=== PATIENT | female | born 1935 | race Caucasian/White ===

== ENCOUNTER 2017-08-16 11:01 | Inpatient (IN) | payer MEDICARE, OTHER ==
[2017-08-16] VITALS (11 sets, daily range): BP systolic 115–194; BP diastolic 60–109
[~2017-08-16] VITALS: Ht 170.2 cm; Wt 57.0 kg
--- NOTE | 2017-08-16 11:57 | ED Neurological Problem ---
General Chief Complaint: Dizziness/Syncope Stated Complaint: POSS STROKE Nursing Triage Note: AMB TO ED PER EMS WITH ONSET BEING DIZZY PATIENT REPORTS THAT SHE DID NOT FEEL WELL LAST NIGHT WHEN SHE WENT TO BED. AND WOKE UP AT 4A FEELING DIZZY. Nursing Sepsis Screen: No Definite Risk Source: patient, family Exam Limitations: no limitations History of Present Illness Time seen by provider: 11:28 Initial Comments Here with report of dizziness, weakness, lightheadedness and headache and neck pain. Onset yesterday and then apparently resolved enough that she was able to go to the bathroom to 0230 this morning on her own. At 0 830, she will And was unable to get out of bed due to significant dizziness and lightheadedness. Her was able to assist her to the bathroom with moderate assist. Patient had nausea and dry heaves. Complaining of headache and upper neck pain. Complaining of persistent lightheadedness currently. Does have history of any bleed with transfer to a year ago. This was apparently from [facility]. Patient reports taking meds as directed. Timing/Duration: 24 hours, increasing, waxing and waning Severity: moderate Associated Symptoms: No fever/chills, No muscle spasms, nausea/vomiting, No slurred speech, trouble walking, weakness Allergies and Home Medications Allergies Coded Allergies: No Known Drug Allergies (Unverified , 08/16/17) Home Medications Aspirin 81 Mg Tablet.dr, 81 MG PO DAILY, (Reported) Bifidobacterium Infantis 4 Mg Capsule, 4 MG PO DAILY, (Reported) Calcium Carbonate 500 Mg Tablet, 500-1,000 MG PO Q6H PRN for INDIGESTION, ( Reported) Cholecalciferol (Vitamin D3) 2,000 Unit Capsule, 2,000 UNIT PO BID, (Reported) Clopidogrel Bisulfate 75 Mg Tablet, 75 MG PO 1200, (Reported) Cyanocobalamin 1,000 Mcg/Ml Inj, 1,000 MCG INJ MONTHLY, (Reported) END OF EACH MONTH Escitalopram Oxalate 5 Mg Tablet, 5 MG PO HS, (Reported) Fluticasone Propionate 9.9 Ml [place].susp, 2 SPRAYS NS DAILY PRN for ALLERGIES, ( Reported) Levothyroxine Sodium 50 Mcg Tablet, 50 MCG PO DAILY, (Reported) Lisinopril 20 Mg Tablet, 20 MG PO BID, (Reported) Melatonin 1 Mg Tablet, 2 MG PO HS, (Reported) Metoprolol Tartrate 100 Mg Tablet, 100 MG PO BID, (Reported) Polyethylene Glycol 3350 17 Gm Powd.pack, 17 GM PO DAILY PRN for CONSTIPATION- 2ND LINE, (Reported) Sucralfate 1 Gm Tablet, 1 GM PO BID, (Reported) Constitutional: see HPI, No chills, dizziness, No fever, weakness Eyes: No Symptoms Reported Ears, Nose, Mouth, Throat: no symptoms reported Respiratory: No cough, No dyspnea on exertion, No short of breath Cardiovascular: No chest pain, No edema, No palpitations Gastrointestinal: abdominal pain (low abdominal and epigastric region), nausea , vomiting Genitourinary: no symptoms reported Musculoskeletal: no symptoms reported Skin: no symptoms reported Psychiatric/Neurological: See HPI, Headache, Weakness All Other Systems Reviewed Negative Unless Noted: Yes Past Vaaigyi-Raimju-Gcvllx Hx Patient Social History Alcohol Use: Denies Use Recreational Drug Use: No Smoking Status: Former Smoker Recent Foreign Travel: No Contact w/Someone Who Travel: No Recent Infectious Disease Expo: No Recent Hopitalizations: Yes Surgeries 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 ) Neurological Disorders: Stroke Endocrine History of Endocrine Disorders: Yes Endocrine Disorders: Hypothyroidsim Cancer History of Cancer: No Psychosocial History of Psychiatric Problem: Yes Behavioral Health Disorders: Depression Reviewed Nursing Assessment Reviewed/Agree w Nursing PMH: Yes Family Medical History Significant Family History: No Pertinent Family Hx Physical Exam Vital Signs Vital Sign - Last 12Hours 08/16/17 08/16/17 11:29 12:07 Temp 98.0 Pulse 75 Resp 18 B/P (MAP) 191/120 Pulse Ox 97 O2 Delivery Room Air Capillary Refill : Less Than 3 Seconds General Appearance: WD/WN, no apparent distress HEENT: PERRL/EOMI, pharynx normal Neck: full range of motion, supple Respiratory: lungs clear, normal breath sounds Cardiovascular: regular rate, rhythm, no murmur Peripheral Pulses: 2+ Dorsalis Pedis (R), 2+ Left Dors-Pedis (L), 2+ Radial Pulses (R), 2+ Radial Pulses (L) Gastrointestinal: non tender, soft Back: normal inspection, no CVA tenderness, no vertebral tenderness Extremities: non-tender, normal inspection, no pedal edema Neurologic/Psychiatric: alert, oriented x 3 Crainal Nerves: normal hearing, normal speech, PERRL Coordination/Gait: other (finger to nose slowed bilaterally) Motor/Sensory: no motor deficit, no sensory deficit, no pronator drift Skin: normal color, warm/dry Progress/Results/Core Measures Results/Orders Lab Results Laboratory Tests Test 08/16/17 12:13 08/16/17 12:40 08/16/17 13:01 Range/Units White Blood Count 7.4 4.3-11.0 10^3/uL Red Blood Count 3.86 L 4.35-5.85 10^6/uL Hemoglobin 12.6 11.5-16.0 G/DL Hematocrit 37 35-52 % Mean Corpuscular Volume 96 80-99 FL Mean Corpuscular Hemoglobin 33 25-34 PG Mean Corpuscular Hemoglobin Concent 34 32-36 G/DL Red Cell Distribution Width 11.7 10.0-14.5 % Platelet Count 214 130-400 10^3/uL Mean Platelet Volume 9.4 7.4-10.4 FL Neutrophils (%) (Auto) 73 42-75 % Lymphocytes (%) (Auto) 18 12-44 % Monocytes (%) (Auto) 7 0-12 % Eosinophils (%) (Auto) 1 0-10 % Basophils (%) (Auto) 0 0-10 % Neutrophils # (Auto) 5.4 1.8-7.8 X 10^3 Lymphocytes # (Auto) 1.4 1.0-4.0 X 10^3 Monocytes # (Auto) 0.5 0.0-1.0 X 10^3 Eosinophils # (Auto) 0.1 0.0-0.3 10^3/uL Basophils # (Auto) 0.0 0.0-0.1 10^3/uL Sodium Level 138 135-145 MMOL/L Potassium Level 4.0 3.6-5.0 MMOL/L Chloride Level 104 98-107 MMOL/L Carbon Dioxide Level 30 21-32 MMOL/L Anion Gap 4 L 5-14 MMOL/L Blood Urea Nitrogen 13 7-18 MG/DL Creatinine 0.77 0.60-1.30 MG/DL Estimat Glomerular Filtration Rate > 60 BUN/Creatinine Ratio 17 Glucose Level 105 70-105 MG/DL Calcium Level 9.0 8.5-10.1 MG/DL Magnesium Level 1.7 L 1.8-2.4 MG/DL Total Bilirubin 0.5 0.1-1.0 MG/DL Aspartate Amino Transf (AST/SGOT) 16 5-34 U/L Alanine Aminotransferase (ALT/SGPT) 8 0-55 U/L Alkaline Phosphatase 57 40-136 U/L Troponin I < 0.30 <0.30 NG/ML C-Reactive Protein High Sensitivity 0.08 0.00-0.50 MG/DL Total Protein 6.9 6.4-8.2 GM/DL Albumin 3.6 3.2-4.5 GM/DL Urine Color YELLOW Urine Clarity SLIGHTLY CLOUDY Urine pH 7 5-9 Urine Specific Triangle 1.010 L 1.016-1.022 Urine Protein NEGATIVE NEGATIVE Urine Glucose (UA) NEGATIVE NEGATIVE Urine Ketones NEGATIVE NEGATIVE Urine Nitrite POSITIVE H NEGATIVE Urine Bilirubin NEGATIVE NEGATIVE Urine Urobilinogen NORMAL NORMAL MG/DL Urine Leukocyte Esterase 2+ H NEGATIVE Urine RBC (Auto) 1+ H NEGATIVE Urine RBC RARE /HPF Urine WBC 10-25 H /HPF Urine Squamous Epithelial Cells 5-10 /HPF Urine Renal Epithelial Cells NONE /HPF Urine Crystals PRESENT H /LPF Urine Amorphous Sediment FEW KESHAWN URATES H /LPF Urine Bacteria LARGE H /HPF Urine Casts NONE /LPF Urine Mucus NEGATIVE /LPF Urine Culture Indicated YES Prothrombin Time 13.4 12.2-14.7 SEC INR Comment 1.0 0.8-1.4 Activated Partial Thromboplast Time 25 24-35 SEC D-Dimer 0.52 H 0.00-0.49 UG/ML My Orders Orders - BHAVANA KRAMER MD Ct Head/Cervical Spine Wo (08/16/17 11:37) Cbc With Automated Diff (08/16/17 11:37) Comprehensive Metabolic Panel (08/16/17 11:37) Hs C Reactive Protein (08/16/17 11:37) Fibrin Degradation Products (08/16/17 11:37) Magnesium (08/16/17 11:37) Protime With Inr (08/16/17 11:37) Partial Thromboplastin Time (08/16/17 11:37) Troponin I (08/16/17 11:37) Ua Culture If Indicated (08/16/17 11:37) Ekg Tracing (08/16/17 11:37) Monitor-Rhythm Ecg Trace Only (08/16/17 11:37) Dysphagia Screening Tool (08/16/17 11:37) Urine Culture (08/16/17 12:40) Ceftriaxone Injection (Rocephin Injectio (08/16/17 14:45) Medications Given in ED Current Medications Medications Dose Ordered Sig/Ziggy Route Start Time Stop Time Status Last Admin Dose Admin Ceftriaxone Sodium 1000 mg/ Sodium Chloride 50 ml @ 100 mls/hr ONCE ONCE IV 08/16/17 14:45 08/16/17 15:14 DC 08/16/17 14:55 100 MLS/HR Vital Signs/I&O Vital Sign - Last 12Hours 08/16/17 08/16/17 08/16/17 08/16/17 11:29 12:07 13:18 14:10 Temp 98.0 Pulse 75 57 60 65 Resp 18 18 18 18 B/P (MAP) 191/120 188/109 154/84 194/91 Pulse Ox 97 97 94 97 O2 Delivery Room Air Room Air 08/16/17 15:10 Pulse 62 Resp 18 Pulse Ox 95 O2 Delivery Room Air Blood Pressure Mean: 143 Progress Note : Progress Note Seen and evaluated. IV, labs, UA. CT head and neck ordered. EKG and chest x- ray ordered. Stroke scale 0 as performed by me. Dysphagia screen ordered. Monitor patient. Patient is not candidate for TPA due to onset time greater than 3 hours prior to arrival with last known well time 230 a.m. this morning. Patient is also on Plavix with history of hemorrhagic stroke a year ago. Monitor patient. 1240: Acute findings of CVA on CT in the left front region. Also sinus system concerns. All findings concerns were discussed with the patient and family. Patient needs MRI evaluation. Also has hypertension that we will just monitor at this point as her blood pressures have been less than 220 systolic but have been elevated in the 160s to 190s systolic range. This will need to be further evaluated after the acute phase. 1500: Over the last 2 hours I have spoken with Dr. Ford who is accepted patient for admission, inpatient status to the ICU. She has requested consult with Dr. Miller and with ENT. I spoke with Twyla Meyer APRN patrol conductor for ENT. I did discuss the maxillary sinus concerns. She recommends antibiotics to treat for sinusitis and they will follow her up in 2 weeks. She believes this is likely related to acute sinusitis symptoms. Patient and family admit that she has frequent sinus problems. There is no history of mass or other concerns within the sinus and she has been thoroughly examined in the last year related to brain bleed. I do believe this is related to sinusitis. I did speak with Dr. Miller and he had concerns related to anticoagulation. This prompted a call to the on-call stroke neurologist, Dr Sam Arvizu. He will view the films both from here and previous films at to determine if the risk of anticoagulation further exceeds the benefits. 1438: I discussed the case with on-call stroke neurologist again. He has reviewed the films there and has noted that the area of hypodensity is along the track of the previous drain related to the previous intracranial hemorrhage that was fairly significant. He does not believe that this is acute onset stroke given the area of concern. In discussion of anticoagulation, he is recommending watchman device through cardiology. This could be due to [facility] the patient needs to be clear to infections before consult placed. As far as anticoagulation, given that there is less likelihood of current stroke and more related to infection, continuation of Plavix and aspirin seems reasonable. All of this was discussed with the patient and family including risk of anticoagulation further versus continuing with current regimen which would include risk of embolic stroke versus risk of hemorrhagic stroke. Patient and family agree that current therapy is reasonable and will continue that but would like to pursue the watchman device as an option later. Patient will be admitted to the ICU due to labile blood pressure. Cardiology will follow with regard to that. 1500: I did update Dr. Ford on all current findings and concerns as well as the urinary tract infection. Rocephin 1 g IV has been ordered and given. Admit inpatient status. Patient shows no evidence of severe bacterial infection systemically currently. Blood cultures and lactic acid not drawn prior to Rocephin due to complicated issues related to evaluation of the stroke. CRP is negative and white count is normal. ECG Initial ECG Impression Date: Aug 16, 2017 Initial ECG Impression Time: 11:54 Initial ECG Rate: 69 Initial ECG Rhythm: A Fib/Flutter Initial ECG Impression: Atrial Fibrillation Comment Atrial fibrillation with normal rate. Normal axis. No evidence of ST elevation RI. No previous EKGs available for comparison area and interpreted by me. Diagnostic Imaging Diagonstic Imaging: CT Plain Films/CT/US/NM/MRI: head Comments VIA [facility]. [place], [place] NAME: JOSE ELY REC#: [id number] PT STATUS: REG ER : 1935 PHYSICIAN: BHAVANA KRAMER MD ADMIT DATE: 08/16/17/ER Draft Date of Exam:08/16/17 CT HEAD/CERVICAL SPINE WO PROCEDURE: CT head and CT cervical spine without contrast. TECHNIQUE: Multiple contiguous axial images were obtained through the brain and cervical spine without the use of intravenous contrast. Sagittal and coronal reformations through the cervical spine were then performed. INDICATION: Dizziness. Fall. No prior studies are available for comparison. Findings: CT head: There is extensive periventricular and deep white matter hypodensities compatible with chronic microvascular ischemic changes. There is a left frontal age indeterminate infarct also suggested. No intracranial hemorrhage. No extra-axial fluid collection. No hydrocephalus. The calvarium appears unremarkable. There is a complete obliteration of the left maxillary sinus partially visualized on this exam. This could relate to a polyp or a mass. ENT evaluation suggested. CT cervical spine: There is satisfactory alignment at the posterior spinal line. The vertebral body heights are preserved. There is a moderate disc height loss at C6/7 level. Mild posterior osteophytes at this level is seen. There is suggestion of early osseous bridging and fusion along the posterior margin of the vertebral bodies and the right uncovertebral joint at this level. No widening of the predental space. There is satisfactory alignment of the lateral masses of C1 and C2 and at the atlantooccipital joints. There is degenerative facet arthropathy seen in the mid cervical spine most prominent on the left side at C4/5 level. No fracture is seen. The lung apices demonstrate evidence of emphysema. IMPRESSION: CT head: 1. No intracranial hemorrhage. 2. Hypodensity along the medial aspect of the left frontal lobe is suggestive of a small acute infarct, of indeterminate age. This could be better evaluated with MRI if needed. 3. Complete obliteration of the visualized portion of the left maxillary sinus which could relate to underlying infection, polyp or mass. ENT evaluation is recommended. CT cervical spine: 1. Degenerative changes. No fracture seen. The findings were discussed with Ms. Aimee Barrientos, the nurse practitioner working with Dr. Kramer at time of dictation. Dictated on workstation # [id number] Dict: 08/16/17 1235 Trans: 08/16/17 1252 [facility] [id number] Interpreted by: MADYSON CONTRERAS MD Electronically signed by: Reviewed: Reviewed/Discussed Departure Communication (Admissions) Time/Spoke to Admitting Phy: 13:40 Time/Spoke to Consulting Phy: 14:30 Impression Impression: Primary Impression: CVA (cerebral vascular accident) Qualified Codes: I63.9 - Cerebral infarction, unspecified Additional Impressions: Atrial fibrillation Qualified Codes: I48.2 - Chronic atrial fibrillation Left maxillary sinusitis Urinary tract infection Qualified Codes: N30.00 - Acute cystitis without hematuria Disposition: ADMITTED INPATIENT Condition: Stable Admissions Decision to Admit Reason: Admit from ER (General) Decision to Admit/Date: Aug 16, 2017 Time/Decision to Admit Time: 13:36 BHAVANA KRAMER MD Aug 16, 2017 11:57
[2017-08-16] MEDS ORDERED: ASPI-983 PO (11:58)
[2017-08-16] MEDS ORDERED: CLOP75TA28 PO (11:58)
[2017-08-16] MEDS ORDERED: SUCR1TAB PO (11:58)
[2017-08-16] MEDS ORDERED: CALC500T3 PO (11:58)
[2017-08-16] MEDS ORDERED: LISI-552 PO (11:58)
[2017-08-16] MEDS ORDERED: CHOL20003 PO (11:58)
[2017-08-16] MEDS ORDERED: CNC1KV INJ (11:58)
[2017-08-16] MEDS ORDERED: MELA1TAB8 PO (11:58)
[2017-08-16] MEDS ORDERED: METO100T2 PO (11:58)
[2017-08-16] MEDS ORDERED: LEVO50TA6 PO (11:58)
[2017-08-16] MEDS ORDERED: POLY17PO6 PO (11:58)
[2017-08-16] MEDS ORDERED: BIFI4CAP PO (11:58)
[2017-08-16] MEDS ORDERED: FLUT9.9S NS (11:58)
[2017-08-16] MEDS ORDERED: ESCI5TAB12 PO (11:58)
[2017-08-16 12:29] LABS: BASOPHILS % (AUTO) 0 % (0-10); EOSINOPHILS # (AUTO) 0.1 10^3/uL (0.0-0.3); EOSINOPHILS % (AUTO) 1 % (0-10); LYMPHOCYTES # (AUTO) 1.4 X 10^3 (1.0-4.0); LYMPHOCYTES % (AUTO) 18 % (12-44); MEAN CORPUSCULAR HEMOGLOBIN 33 PG (25-34); MEAN CORPUSCULAR HGB CONC 34 G/DL (32-36); MEAN CORPUSCULAR VOLUME 96 FL (80-99); MEAN PLATELET VOLUME 9.4 FL (7.4-10.4); MONOCYTES # (AUTO) 0.5 X 10^3 (0.0-1.0); MONOCYTES % (AUTO) 7 % (0-12); NEUTROPHILS # (AUTO) 5.4 X 10^3 (1.8-7.8); NEUTROPHILS % (AUTO) 73 % (42-75); PLATELET COUNT 214 10^3/uL (130-400); RED BLOOD COUNT 3.86 10^6/uL (4.35-5.85); RED CELL DISTRIBUTION WIDTH 11.7 % (10.0-14.5); WHITE BLOOD COUNT 7.4 10^3/uL (4.3-11.0)
[2017-08-16 12:49] LABS: ALANINE AMINOTRANSFERASE 8 U/L (0-55); ALBUMIN 3.6 GM/DL (3.2-4.5); ANION GAP 4 MMOL/L (5-14); ASPARTATE AMINO TRANSFERASE 16 U/L (5-34); BILIRUBIN,TOTAL 0.5 MG/DL (0.1-1.0); BLOOD UREA NITROGEN 13 MG/DL (7-18); BUN/CREATININE RATIO 17; CARBON DIOXIDE 30 MMOL/L (21-32); CHLORIDE 104 MMOL/L (98-107); CREATININE SERUM 0.77 MG/DL (0.60-1.30); GFR ESTIMATED > 60; GLUCOSE 105 MG/DL (70-105); MAGNESIUM 1.7 MG/DL (1.8-2.4); SODIUM 138 MMOL/L (135-145); TOTAL PROTEIN 6.9 GM/DL (6.4-8.2); hs C REACTIVE PROTEIN 0.08 MG/DL (0.00-0.50)
--- NOTE | 2017-08-16 12:53 | Diagnostic Imaging Report ---
PROCEDURE: CT head and CT cervical spine without contrast. TECHNIQUE: Multiple contiguous axial images were obtained through the brain and cervical spine without the use of intravenous contrast. Sagittal and coronal reformations through the cervical spine were then performed. INDICATION: Dizziness. Fall. No prior studies are available for comparison. Findings: CT head: There is extensive periventricular and deep white matter hypodensities compatible with chronic microvascular ischemic changes. There is a left frontal age indeterminate infarct also suggested. No intracranial hemorrhage. No extra-axial fluid collection. No hydrocephalus. The calvarium appears unremarkable. There is a complete obliteration of the left maxillary sinus partially visualized on this exam. This could relate to a polyp or a mass. ENT evaluation suggested. CT cervical spine: There is satisfactory alignment at the posterior spinal line. The vertebral body heights are preserved. There is a moderate disc height loss at C6/7 level. Mild posterior osteophytes at this level is seen. There is suggestion of early osseous bridging and fusion along the posterior margin of the vertebral bodies and the right uncovertebral joint at this level. No widening of the predental space. There is satisfactory alignment of the lateral masses of C1 and C2 and at the atlantooccipital joints. There is degenerative facet arthropathy seen in the mid cervical spine most prominent on the left side at C4/5 level. No fracture is seen. The lung apices demonstrate evidence of emphysema. IMPRESSION: CT head: 1. No intracranial hemorrhage. 2. Hypodensity along the medial aspect of the left frontal lobe is suggestive of a small acute infarct, of indeterminate age. This could be better evaluated with MRI if needed. 3. Complete obliteration of the visualized portion of the left maxillary sinus which could relate to underlying infection, polyp or mass. ENT evaluation is recommended. CT cervical spine: Degenerative changes. No fracture seen. The findings were discussed with Ms. Aimee Barrientos, the nurse practitioner working with Dr. Clifford at time of dictation. Dictated by: Dictated on workstation # [id number]
[2017-08-16 12:54] LABS: TROPONIN I < 0.30 NG/ML (<0.30)
[2017-08-16 13:24] LABS: PROTHROMBIN TIME PATIENT 13.4 SEC (12.2-14.7)
[2017-08-16 13:49] LABS: BILIRUBIN,URINE NEGATIVE (NEGATIVE); KETONES,URINE NEGATIVE (NEGATIVE); LEUKOCYTE ESTERASE ,URINE 2+ (NEGATIVE); NITRITE,URINE POSITIVE (NEGATIVE); PH,URINE 7 (5-9); PROTEIN,URINE NEGATIVE (NEGATIVE); UROBILINOGEN,URINE NORMAL (NORMAL)
[2017-08-16] MEDS ORDERED: cefTRIAXone INJECTION 1,000 MG in NS (IVPB) 50 ML IV ONE (14:45)
--- NOTE | 2017-08-16 17:03 | Diagnostic Imaging Report ---
PROCEDURE: MR imaging of the brain without contrast. TECHNIQUE: Multiplanar, multisequence MR imaging of the brain was performed without contrast. INDICATION: Fall. Dizziness. Hypodensity in the anterior aspect of the right frontal lobe seen on CT raising question of possible acute infarct. FINDINGS: There is diffusion restriction suggesting an acute infarct. There is extensive periventricular and deep white matter T2 hyperintense signal abnormalities suggestive of chronic microvascular ischemic changes. There is focal encephalomalacia involving the anteromedial aspect of the left frontal lobe, which could relate to an old injury or old infarct. 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 The lateral ventricles demonstrate minimal dilatation which could relate to volume loss from aging and the ischemic changes with questionable element of normal pressure hydrocephalus. The pituitary gland is normal in size. No hypothalamic or pineal region mass. The central vascular flow-voids appear grossly unremarkable. The internal auditory canals and inner ear structures appear symmetric. There is complete obliteration of the left maxillary sinus with appearance suggestive of mucosal thickening and central fluid. IMPRESSION: 1. No acute infarct. There is evidence of chronic ischemic changes and findings in the right frontal lobe on CT scan could relate to prior trauma or small old infarct. 2. Minimal dilatation of the lateral ventricles could be from overall volume loss with questionable element of normal pressure hydrocephalus. 3. Mucosal thickening and luminal obliteration of the left maxillary sinus may relate to sinusitis or polyps. Dictated by: Dictated on workstation # [id number]
--- NOTE | 2017-08-16 17:05 | Diagnostic Imaging Report ---
PROCEDURE: US Carotid Duplex Bilateral. TECHNIQUE: Multiple real-time grayscale images were obtained over the carotid arteries in various projections bilaterally. Additional duplex Doppler and color Doppler images were also obtained. INDICATION: Severe dizziness. FINDINGS: Grayscale images demonstrate atherosclerotic plaque around the carotid bifurcation bilaterally. Color Doppler demonstrates patency of the common, internal and external carotid arteries on both sides. Peak systolic velocities in the right ICA are 33, 47, and 71 cm/s and on the left are 59, 50 and 63 cm/s. ICA/CCA ratios are up to 1.5 on the right and up to 1.3 on the left. IMPRESSION: There is mild atherosclerotic plaque at the carotid bifurcation more prominent on the left side with estimated underlying stenosis in the range of 25-50%. Dictated by: Dictated on workstation # [id number]
[2017-08-16] MEDS ORDERED: MAGNESIUM 1 GM/100 ML IVPB 200 ML IV ONE (18:10)
--- NOTE | 2017-08-16 18:27 | Consultation-Cardiology ---
HPI-Cardiology Cardiology Consultation: Date of Consultation 08/16/17 Time Seen by Provider: 18:00 Date of Admission Attending Physician Mirta Ford DO Admitting Physician Consulting Physician LAMONT HOPE MD, MA, FACP, FACC, [facility], CCDS HPI: Chief Complaint: Profound dizziness 81 yo woman who awoke with profound dizziness early today and this persisted and she came to the ER this afternoon. Initially was suspected to have had a stroke, but subsequently, following a phone consultation of Dr Clifford with Dr Arvizu of the Neuro Sv[facility] at , it is felt that she has not had an acute stroke and that findings on intracranial imaging match what has previously been documented at She has h/o intracranial bleed while on warfarin for stroke prophylaxis. This required surgery and placement of intracranial drains. Since then, the use of OAC has been felt to be contraindicated and she has been treated with aspirin and Plavix that she has tolerated well for a long time She does not report cp or palp or syncope or leg swelling She notes gen weakness but no focal weakness Review of Systems-Cardiology Review of Systems Constitutional: lightheadedness, tiredness, No weight loss, No weight gain Eyes: No vision change Ears/Nose/Throat: No ear discharge, No nasal drainage, No recent hearing loss Respiratory: As described under HPI Cardiovascular: As described under HPI Gastrointestinal: No constipation, No diarrhea, No nausea, No vomiting Genitourinary: No dysuria, No hematuria, No urine frequency changes Musculoskeletal: back pain (chronic) Psychiatric/Neurological: No seizure, No focal weakness, No syncope Hematologic: bleeding abnormalities (h/o intracranial bleed requiring a surgery a few years ago (she does not recall the exact date or year)) All Other Systems Reviewed Negative Unless Noted: Yes LYN-Caiidi-Ipgdhj Hx Patient Social History Alcohol Use: Denies Use Recreational Drug Use: No Smoking Status: Former Smoker Recent Foreign Travel: No Recent Infectious Disease Expo: No Hospitalization with Isolation: Denies Physical Abuse Screen: No Sexual Abuse: No Immunizations Up To Date Date of Pneumonia Vaccine: Aug 16, 2016 Date of Influenza Vaccine: Aug 02, 2017 Past Medical History PMH As described under Assessment. Family Medical History Family Medical History: She does not report fam h/o early CAD or SCD Allergies and Home Medications Allergies Coded Allergies: No Known Drug Allergies (Unverified , 08/16/17) Home Medications Aspirin 81 Mg Tablet.dr, 81 MG PO DAILY, (Reported) Bifidobacterium Infantis 4 Mg Capsule, 4 MG PO DAILY, (Reported) Calcium Carbonate 500 Mg Tablet, 500-1,000 MG PO Q6H PRN for INDIGESTION, ( Reported) Cholecalciferol (Vitamin D3) 2,000 Unit Capsule, 2,000 UNIT PO BID, (Reported) Clopidogrel Bisulfate 75 Mg Tablet, 75 MG PO 1200, (Reported) Cyanocobalamin 1,000 Mcg/Ml Inj, 1,000 MCG INJ MONTHLY, (Reported) END OF EACH MONTH Escitalopram Oxalate 5 Mg Tablet, 5 MG PO HS, (Reported) Fluticasone Propionate 9.9 Ml [place].susp, 2 SPRAYS NS DAILY PRN for ALLERGIES, ( Reported) Levothyroxine Sodium 50 Mcg Tablet, 50 MCG PO DAILY, (Reported) Lisinopril 20 Mg Tablet, 20 MG PO BID, (Reported) Melatonin 1 Mg Tablet, 2 MG PO HS, (Reported) Metoprolol Tartrate 100 Mg Tablet, 100 MG PO BID, (Reported) Polyethylene Glycol 3350 17 Gm Powd.pack, 17 GM PO DAILY PRN for CONSTIPATION- 2ND LINE, (Reported) Physical Exam-Cardiology Physical Exam Vital Signs/I&O Vital Sign - Last 12Hours 08/16/17 08/16/17 08/16/17 08/16/17 11:29 12:07 13:18 14:10 Temp 98.0 Pulse 75 57 60 65 Resp 18 18 18 18 B/P (MAP) 191/120 188/109 154/84 194/91 Pulse Ox 97 97 94 97 O2 Delivery Room Air Room Air 08/16/17 08/16/17 08/16/17 15:10 15:33 16:00 Pulse 62 62 Resp 18 Pulse Ox 95 99 O2 Delivery Room Air Room Air Intake and Output 08/17/17 00:00 Intake Total 50 ml Balance 50 ml Capillary Refill : Less Than 3 Seconds Constitutional: AAO x 3, well-developed, other (Thin appearing; somewhat to slow to respond to questions, but does respond appropriately) HEENT: PERRL, EOMI, hearing is well preserved Neck: No carotid bruit, carotid pulses are 2 + bilaterally, with good upstrokes Respiratory: No accessory muscle use, other (good bilateral air entry) Cardiovascular: irregularly irregular, S1 and S2, systolic murmur (faint ESE at cardiac base) Gastrointestinal: No tender, soft, No guarding, No rebound, audible bowel sounds Extremities: No clubbing, No cyanosis, No significant edema Neurologic/Psychiatric: oriented x 3, other (gen weakness, but does not seem to have focal weakness; slow to respond, but appropriate) Skin: No rash on exposed areas, No ulcerations on exposed areas Data Review Labs Laboratory Tests 08/16/17 12:13: White Blood Count 7.4, Red Blood Count 3.86L, Hemoglobin 12.6, Hematocrit 37, Mean Corpuscular Volume 96, Mean Corpuscular Hemoglobin 33, Mean Corpuscular Hemoglobin Concent 34, Red Cell Distribution Width 11.7, Platelet Count 214, Mean Platelet Volume 9.4, Neutrophils (%) (Auto) 73, Lymphocytes (%) (Auto) 18, Monocytes (%) (Auto) 7, Eosinophils (%) (Auto) 1, Basophils (%) (Auto) 0, Neutrophils # (Auto) 5.4, Lymphocytes # (Auto) 1.4, Monocytes # (Auto) 0.5, Eosinophils # (Auto) 0.1, Basophils # (Auto) 0.0, Sodium Level 138, Potassium Level 4.0, Chloride Level 104, Carbon Dioxide Level 30, Anion Gap 4L, Blood Urea Nitrogen 13, Creatinine 0.77, Estimat Glomerular Filtration Rate > 60, BUN/ Creatinine Ratio 17, Glucose Level 105, Calcium Level 9.0, Magnesium Level 1.7L , Total Bilirubin 0.5, Aspartate Amino Transf (AST/SGOT) 16, Alanine Aminotransferase (ALT/SGPT) 8, Alkaline Phosphatase 57, Troponin I < 0.30, C- Reactive Protein High Sensitivity 0.08, Total Protein 6.9, Albumin 3.6 08/16/17 12:40: Urine Color YELLOW, Urine Clarity SLIGHTLY CLOUDY, Urine pH 7, Urine Specific [place] 1.010L, Urine Protein NEGATIVE, Urine Glucose (UA) NEGATIVE, Urine Ketones NEGATIVE, Urine Nitrite POSITIVEH, Urine Bilirubin NEGATIVE, Urine Urobilinogen NORMAL, Urine Leukocyte Esterase 2+H, Urine RBC (Auto) 1+H, Urine RBC RARE, Urine WBC 10-25H, Urine Squamous Epithelial Cells 5-10, Urine Renal Epithelial Cells NONE, Urine Crystals PRESENTH, Urine Amorphous Sediment FEW KESHAWN URATESH, Urine Bacteria LARGEH, Urine Casts NONE, Urine Mucus NEGATIVE, Urine Culture Indicated YES 08/16/17 13:01: Prothrombin Time 13.4, INR Comment 1.0, Activated Partial Thromboplast Time 25, D-Dimer 0.52H Laboratory Tests 08/16/17 12:13 A/P-Cardiology Assessment/Admission Diagnosis Profound dizziness of undetermined etiology, managed by Dr Ford Chronic atrial fibrillation H/o intracranial bleed while on OAC a few years ago. This required surgical treatment at . OAC has since been considered contraindicated. She has been able to take aspirin and Plavix w/o problem since then Hypertension UTI, being managed by Dr Ford Discussion and Recomendations * Complex management due to issues noted above * OAC contraindicated. Dr Clifford discussed this issue with Dr Arvizu of the Neuro [facility] at who has recommended continuation of ASA and Plavix * Dr Ford is managing UTI, dizziness, and possible stroke * Monitor labs * Echo * Would be a good candidate for Watchmann device for stroke prophylaxis once she gets over this acute syndrome. 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
[2017-08-16] MEDS ORDERED: amLODIPine 5 MG (NORVASC) TAB PO NR (18:30)
[2017-08-16] MEDS ORDERED: CLOPIDOGREL 75 MG (PLAVIX) TABLET PO ONE (18:45)
[2017-08-16] MEDS ORDERED: hydrALAZINE (APESOLINE) 20 MG/ML VIAL ONE (19:31)
[2017-08-16] MEDS ORDERED: hydrALAZINE (APESOLINE) 20 MG/ML VIAL IV PRN ×2 (19:45→20:00)
[2017-08-16] MEDS ORDERED: CATHETER FLUSH 10 ML SYR IV PRN (20:00)
[2017-08-16] MEDS ORDERED: ONDANSETRON 4 MG/2 ML (SDV) Z0FRAN IV NR (20:27)
[2017-08-16] MEDS ORDERED: ACETAMINOPHEN 325 MG TABLET/CAPLET (TYLENOL) PO NR (20:27)
[2017-08-16] MEDS ORDERED: ACETAMINOPHEN 325 MG TABLET/CAPLET (TYLENOL) PO ONE (20:30)
[2017-08-16] MEDS ORDERED: ONDANSETRON 4 MG/2 ML (SDV) Z0FRAN IVP ONE (20:30)
[2017-08-16] MEDS: CATHETER FLUSH 10 ML SYR IV SCH (20:34)
[2017-08-17] VITALS (13 sets, daily range): BP systolic 115–148; BP diastolic 61–90
[2017-08-17 05:06] LABS: BASOPHILS % (AUTO) 0 % (0-10); EOSINOPHILS % (AUTO) 0 % (0-10); LYMPHOCYTES # (AUTO) 1.6 X 10^3 (1.0-4.0); LYMPHOCYTES % (AUTO) 22 % (12-44); MEAN CORPUSCULAR HEMOGLOBIN 33 PG (25-34); MEAN CORPUSCULAR HGB CONC 34 G/DL (32-36); MEAN CORPUSCULAR VOLUME 95 FL (80-99); MEAN PLATELET VOLUME 9.1 FL (7.4-10.4); MONOCYTES # (AUTO) 0.5 X 10^3 (0.0-1.0); MONOCYTES % (AUTO) 7 % (0-12); NEUTROPHILS % (AUTO) 70 % (42-75); PLATELET COUNT 209 10^3/uL (130-400); RED BLOOD COUNT 3.91 10^6/uL (4.35-5.85); RED CELL DISTRIBUTION WIDTH 11.7 % (10.0-14.5); WHITE BLOOD COUNT 7.1 10^3/uL (4.3-11.0)
[2017-08-17 05:30] LABS: ALANINE AMINOTRANSFERASE 7 U/L (0-55); ALBUMIN 3.6 GM/DL (3.2-4.5); ANION GAP 9 MMOL/L (5-14); ASPARTATE AMINO TRANSFERASE 14 U/L (5-34); BILIRUBIN,TOTAL 0.5 MG/DL (0.1-1.0); BLOOD UREA NITROGEN 11 MG/DL (7-18); BUN/CREATININE RATIO 14; CARBON DIOXIDE 24 MMOL/L (21-32); CHLORIDE 101 MMOL/L (98-107); CREATININE SERUM 0.78 MG/DL (0.60-1.30); GFR ESTIMATED > 60; GLUCOSE 105 MG/DL (70-105); MAGNESIUM 2.2 MG/DL (1.8-2.4); POTASSIUM 3.7 MMOL/L (3.6-5.0); SODIUM 134 MMOL/L (135-145); TOTAL PROTEIN 6.9 GM/DL (6.4-8.2)
[2017-08-17] MEDS ORDERED: POTASSIUM CL 10MEQ/50ML IVPB 50 ML IV SCH (06:00)
[2017-08-17] MEDS ORDERED: KCL 20 MEQ TAB (K-DUR) PO SCH (06:00)
[2017-08-17] MEDS ORDERED: MAGNESIUM 1 GM/100 ML IVPB 100 ML IV SCH (06:00)
[2017-08-17] MEDS: CATHETER FLUSH 10 ML SYR IV SCH ×3 (06:14→20:57)
--- NOTE | 2017-08-17 06:29 | Pulmonary Consultation ---
History of Present Illness History of Present Illness Date of Consultation 08/17/17 06:24 Time Seen by Provider: 06:24 Date of Admission History of Present Illness 81yo presented secondary to dizziness, weakness, lightheadedness, and headache. Onset was day prior to admission. No syncope. Pt was found to have a UTI in the ED and was hypertensive. Orthostatic BPs were done laying down supine BP 144/ 82 Sitting up BP, 129/84 and standing 115/81 pt is dizzy upon standing. 1yr ago pt had to be transferred to secondary to ICH. poor appetite. CT was done here and CT discussed with no acute change noted. Allergies and Home Medications Allergies Coded Allergies: No Known Drug Allergies (Unverified , 08/16/17) Home Medications Aspirin 81 Mg Tablet.dr, 81 MG PO DAILY, (Reported) Bifidobacterium Infantis 4 Mg Capsule, 4 MG PO DAILY, (Reported) Calcium Carbonate 500 Mg Tablet, 500-1,000 MG PO Q6H PRN for INDIGESTION, ( Reported) Cholecalciferol (Vitamin D3) 2,000 Unit Capsule, 2,000 UNIT PO BID, (Reported) Clopidogrel Bisulfate 75 Mg Tablet, 75 MG PO 1200, (Reported) Cyanocobalamin 1,000 Mcg/Ml Inj, 1,000 MCG INJ MONTHLY, (Reported) END OF EACH MONTH Escitalopram Oxalate 5 Mg Tablet, 5 MG PO HS, (Reported) Fluticasone Propionate 9.9 Ml [place].susp, 2 SPRAYS NS DAILY PRN for ALLERGIES, ( Reported) Levothyroxine Sodium 50 Mcg Tablet, 50 MCG PO DAILY, (Reported) Lisinopril 20 Mg Tablet, 20 MG PO BID, (Reported) Melatonin 1 Mg Tablet, 2 MG PO HS, (Reported) Metoprolol Tartrate 100 Mg Tablet, 100 MG PO BID, (Reported) Polyethylene Glycol 3350 17 Gm Powd.pack, 17 GM PO DAILY PRN for CONSTIPATION- 2ND LINE, (Reported) Past Wzmkcvv-Yikzgf-Wqicfc Hx Patient Social History Alcohol Use: Denies Use Recreational Drug Use: No Smoking Status: Former Smoker Recent Foreign Travel: No Contact w/Someone Who Travel: No Recent Infectious Disease Expo: No Recent Hopitalizations: Yes Immunizations Up To Date Date of Pneumonia Vaccine: Aug 16, 2016 Date of Influenza Vaccine: Aug 02, 2017 Surgeries 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 ) Neurological Disorders: Stroke Endocrine History of Endocrine Disorders: Yes Endocrine Disorders: Hypothyroidsim Cancer History of Cancer: No Psychosocial History of Psychiatric Problem: Yes Behavioral Health Disorders: Depression Reviewed Nursing Assessment Reviewed/Agree w Nursing PMH: Yes Family Medical History Significant Family History: No Pertinent Family Hx Review of Systems Time Seen by Provider: 06:44 Constitutional: Weakness, No: Fever, Chills, Sweats, Malaise, Other Eyes: No: Pain, Vision change, Conjunctivae inflammation, Eyelid inflammation, Other, Redness ENT: Nose congestion, No: Ear pain, Ear discharge, Nose pain, Nose discharge, Mouth pain, Mouth swelling, Throat pain, Throat swelling, Other Respiratory: No: Cough, Dry, Shortness of breath, SOB with excertion, Wheezing , Hemoptysis, Pleuritic Pain, Sputum, Wheezing, Other Cardiovascular: No: Chest Pain, Palpitations, Orthopnea, Paroxysmal Noc. Dyspnea, Edema, Lt Headedness, Other Gastrointestinal: Nausea Genitourinary: Dysuria, No Frequency, No Incontinence, No Hematuria, No Retention, No Other Neurological: Weakness, Incoordination, Confusion, No: Change in speech, Seizures Exam Exam Vital Signs Date Time Temp Pulse Resp B/P (MAP) Pulse Ox O2 Delivery O2 Flow Rate FiO2 08/17/17 05:24 144/82 (102) 129/84 (99) 115/81 (92) 08/17/17 04:43 97.8 Room Air 08/17/17 04:00 99 Room Air 08/17/17 01:00 73 08/17/17 00:00 97 Room Air 08/17/17 00:00 75 14 125/61 Room Air 08/17/17 00:00 97.0 Room Air 08/16/17 23:00 76 24 125/61 Room Air 08/16/17 22:00 73 12 119/66 Room Air 08/16/17 21:00 67 21 115/60 Room Air 08/16/17 20:00 64 19 130/70 98 Room Air 08/16/17 20:00 98 Room Air 08/16/17 19:44 97.3 Room Air 08/16/17 19:00 64 28 187/90 100 Room Air 08/16/17 19:00 62 08/16/17 18:00 64 16 187/90 Room Air 08/16/17 17:00 63 20 Room Air 08/16/17 16:00 99 Room Air 08/16/17 16:00 70 190/109 Room Air 08/16/17 15:33 62 08/16/17 15:30 66 21 179/93 98 Room Air 08/16/17 15:10 62 18 95 Room Air 08/16/17 14:10 65 18 194/91 97 08/16/17 13:18 60 18 154/84 94 Room Air 08/16/17 12:07 57 18 188/109 97 Room Air 08/16/17 11:29 98.0 75 18 191/120 97 General Appearance: No Apparent Distress, WD/WN, Thin HEENT: PERRL/EOMI, TMs Normal Neck: Full Range of Motion, Normal Inspection Respiratory: Chest Non Tender, No Accessory Muscle Use, No Respiratory Distress , Decreased Breath Sounds Cardiovascular: No JVD, No Murmur, Bradycardia Capillary Refill: Less Than 3 Seconds Peripheral Pulses: 2+ Dorsalis Pedis (R), 2+ Left Dors-Pedis (L), 2+ Radial Pulses (R), 2+ Radial Pulses (L) Gastrointestinal: non tender, soft Neurologic/Psychiatric: Alert, Oriented x3 Skin: Normal Color, Warm/Dry Lymphatic: No Adenopathy Results Lab Laboratory Tests 08/16/17 12:13 08/17/17 04:55 Assessment/Plan Assessment/Plan symptomatic Orthostatic hypotension -Will give 2 liter of NS then run IVF at 50cc/hr -1 liter over 1 hr -2nd liter over 4hrs -then 150 x 1 liter -then 50cc/hr -Check TSH and random cortisol Hypothyroid -check TSH Nausea - probably secondary to UTI Hypertension - with ER admission - now resolved Hx of ICH 1yr ago PT appears stable will transfer to 4th floor with fall precautions. Discussed with he states she has not been eating or drinking much fluid. 255 Clinical Quality Measures DVT/VTE Risk/Contraindication: Risk Factor Score Per Nursin RFS Level Per Nursing on Admit: 4+=Very High DIANE HERRERA DO Aug 17, 2017 06:29
[2017-08-17 06:46] LABS: AMYLASE 15 U/L (25-125); LIPASE < 4 U/L (8-78)
[2017-08-17] MEDS ORDERED: NS IV 1000 ML 1,000 ML IV ONE (07:00)
[2017-08-17 07:06] LABS: THYROID STIMULATING HORMONE 1.78 UIU/ML (0.35-4.94)
--- NOTE | 2017-08-17 07:33 | Diagnostic Imaging Report ---
INDICATION: Shortness of breath. EXAM: Portable chest at 5:17 AM FINDINGS: The heart size and pulmonary vascularity are normal. The lungs are clear. There are no effusions or pneumothoraces. IMPRESSION: Negative chest. Dictated by: Dictated on workstation # [id number]
[2017-08-17] MEDS ORDERED: ASPIRIN 81 MG CHEW (CHILDREN'S ASA) PO SCH (09:00)
[2017-08-17] MEDS ORDERED: CLOPIDOGREL 75 MG (PLAVIX) TABLET PO SCH (09:00)
[2017-08-17] MEDS ORDERED: NS IV 1000 ML 1,000 ML IV SCH ×2 (09:00→13:00)
[2017-08-17] MEDS ORDERED: CALCIUM CARBONATE 500 MG (TUMS) TAB.CHEW PO PRN (10:15)
[2017-08-17] MEDS ORDERED: POLYETHYLENE GLYCOL 17 GM (MIRALAX) PACK PO PRN (10:15)
[2017-08-17 10:23] LABS: CHOLESTEROL 195 MG/DL (< 200); DIRECT LDL 138 MG/DL (1-129); TRIGLYCERIDES 94 MG/DL (<150); VLDL CHOLESTEROL 19 MG/DL (5-40)
--- NOTE | 2017-08-17 12:03 | History & Physical-Hospitalist ---
HPI History of Present Illness: HPI/Chief Complaint CC: Possible stroke HPI: This is a [address] Lucas at [facility] with hx of bleeding stroke in the past managed at [facility], so taken of blood thinner and placed on Plavix for stroke previously from AF for CVA prophylaxis. Yesterday came in with possible stroke 4+ hours after symptoms began, but after in depth work up in ER and multiple conversations with Dr. Clifford and [facility], pt was found to not have a new stroke, so pt placed on Eliquis for thrombosis prevention from AF and treated for UTI which improved disposition overall. 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 Lucas as PCP Pt states she cycles through feeling good and not so good UTI treatment and fluids were discussed. Eliquis was discussed Pt states her stomach was hurting her yesterday Physical exam stable. Lungs sound perfect Pt denies smoking, but confirms being a former smoker. Granddaughter states she stopped around 1983. Pt's was also visiting and he stated that they have been 62 years in December. Pt states she lost her one daughter and the thought of losing her is not good. Move to 4th floor was discussed. Pt's granddaughter asked about further issues and where to take her if they arise, this was addressed. Granddaughter also inquired about the mast in the pt' s sinus; this will be evaluated as out-pt Pt asked about why she is having headaches and this was discussed. Scribed by Twyla Yeung under the direct supervision of Dr. Trotter. Source: patient, family, RN/MD Exam Limitations: clinical condition (dementia) Date Seen 08/17/17 Time Seen by Provider: 10:30 Attending Physician Mirta Trotter DO PCP Referring Physician Date of Admission Aug 16, 2017 at 15:11 Home Medications & Allergies Home Medications Reviewed patient Home Medication Reconciliation Form Allergies Allergies Coded Allergies No Known Drug Allergies ([id number]/19/17) Past Yosqhvg-Zooaou-Lvuzqk Hx Patient Social History Marrital Status: Employed/Student: retired Alcohol Use: Denies Use Recreational Drug Use: No Smoking Status: Former Smoker Physical Abuse Screen: No Sexual Abuse: No Recent Foreign Travel: No Contact w/other who traveled: No Recent Hopitalizations: Yes Recent Infectious Disease Expo: No Immunizations Up To Date Date of Pneumonia Vaccine: Aug 16, 2016 Date of Influenza Vaccine: Aug 02, 2017 Surgeries Yes (brain bleed with edward hole) Respiratory No Cardiovascular Yes (HCC,CHF) Atrial Fibrillation, Hypertension Neurological Yes (Hemorrhagic stroke. ) Dementia, Stroke Genitourinary No Gastrointestinal No Musculoskeletal No Endocrine History of Endocrine Disorders: Yes Endocrine Disorders: Hypothyroidsim HEENT History of HEENT Disorders: No Loss of Vision: Denies Hearing Impairment: Hard of Hearing Cancer No Psychosocial History of Psychiatric Problem: Yes Behavioral Health Disorders: Depression Reviewed Nursing Assessment Reviewed/Agree w Nursing PMH: Yes Family Medical History Significant Family History: No Pertinent Family Hx Review of Systems Constitutional: see HPI, dizziness, malaise, weakness EENTM: no symptoms reported Respiratory: no symptoms reported Cardiovascular: no symptoms reported Gastrointestinal: no symptoms reported, loss of appetite, nausea Genitourinary: no symptoms reported Musculoskeletal: no symptoms reported Skin: no symptoms reported Psychiatric/Neurological: Pre-Existing Deficit, Weakness Physical Exam Physical Exam Vital Signs Vital Sign - Last 12Hours 08/16/17 08/16/17 11:29 12:07 Temp 98.0 Pulse 75 Resp 18 B/P (MAP) 191/120 Pulse Ox 97 O2 Delivery Room Air Capillary Refill : Less Than 3 Seconds General Appearance: No Apparent Distress, WD/WN, Chronically ill Eyes: Bilateral Eye Normal Inspection, Bilateral Eye PERRL HEENT: PERRL/EOMI, Normal ENT Inspection, Pharynx Normal Neck: Full Range of Motion, Normal Inspection, Non Tender, Supple, Carotid Bruit Respiratory: Chest Non Tender, Lungs Clear, Normal Breath Sounds, No Accessory Muscle Use, No Respiratory Distress Cardiovascular: No Edema, No Gallop, No JVD, No Murmur, Normal Peripheral Pulses, Irregularly Irregular Gastrointestinal: Normal Bowel Sounds, No Organomegaly, No Pulsatile Mass, Non Tender, Soft Back: Normal Inspection, No CVA Tenderness, No Vertebral Tenderness Extremity: Normal Capillary Refill, Normal Inspection, Normal Range of Motion, Non Tender, No Calf Tenderness, No Pedal Edema Neurologic/Psychiatric: Alert, Oriented x3 (poor memory recall), No Motor/ Sensory Deficits, Normal Mood/Affect Skin: Normal Color, Warm/Dry Lymphatic: No Adenopathy Results Results/Procedures Lab Laboratory Tests 08/16/17 12:13 08/17/17 04:55 Assessment/Plan Admission Diagnosis Assessment: Acute neurological deficit that appeared to be sub-acute CVA on admit but on comparison of imaging studies at [facility] it appears that that was scarring and track from bleeding stroke in the past Atrial fibrillation with thrombosis risk placed on Eliquis along with antiplatelet agent because she is so high risk for recurrent stroke Acute UTI Acute dehydration 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
--- NOTE | 2017-08-17 12:55 | Physical Therapy Evaluation ---
PT Evaluation-General Medical Diagnosis Admission Date Aug 16, 2017 at 15:11 Medical Diagnosis: hypotensive episode Onset Date: Aug 16, 2017 Therapy Diagnosis Therapy Diagnosis: weakness; abn gait Height/Weight Height (Feet): 5 Height (Inches): 7.00 Weight (Pounds): 117 Weight (Ounces): 0.0 Precautions Precautions/Isolations: Fall Prevention, Standard Precautions Referral Physician: Nette Reason for Referral: Evaluation/Treatment Medical History Pertinent Medical History: Atrial Fib, CVA Additional Medical History CHF, depression; CVA approx 1 year ago that was a bleed centrally; experiences memory problems since that time. Current History Pt admitted with possible CVA but was found to be a hypotensive episode and likely UTI Reviewed History: Yes Social History Home: Assisted Living (with her spouse) Entry Into Home: Level Entry Prior/Core FIM Prior Level of Function Functional Cache Measure 0=Not Assessed/NA 4=Minimal Assistance 1=Total Assistance 5=Supervision or Setup 2=Maximal Assistance 6=Modified Cache 3=Moderate Assistance 7=Complete Cache Pt and spouse report she is able to manage her self care needs and ambulate in the ROBERTO without assist. PT Evaluation-Current Subjective Pt agreeable. Reports she has been getting up to the commode with just light assist. Pain Numeric Pain Scale: 0-No Pain Location: No Pain Reported Objective Patient Orientation: Person, Place, Time, Situation Problem Solving: Fair Attachments: IV ROM/Strength ROM Lower Extremities wFL Strength Lower Extremities Functional, althought diminished. Integumentary/Posture Integumentary refer to nursing notes. Bowel Incontinence: No Bladder Incontinence: No Posture normal and symmetrical Neuromuscular (Tone, Coordination, Reflexes) intact Sensory Vision: Wears Glasses Hearing: Functional Hand Dominance: Right Sensation Right Lower Extremit: Intact Sensation Left Lower Extremity: Intact Transfers Functional Cache Measure 0=Not Assessed/NA 4=Minimal Assistance 1=Total Assistance 5=Supervision or Setup 2=Maximal Assistance 6=Modified Cache 3=Moderate Assistance 7=Complete Cache Transfers (B, C, W/C) (FIM): 4 Supine to/from Sit: 4 Sit to/from Stand: 4 bed t/f WC(FIM only if WC use): 4 CGA with all transfers for safety. Balance Sitting Static: Good Sitting Dynamic: Good Standing Static: Fair Standing Dynamic: Fair Special Test Comments Functional dynamic balance in standing impaired with noted balance deficits. Treatment Transferred bed to wheelchair for transfer out of ICU. Unsteady with transfer and needs close CGA for safety. Assessment/Needs Presents with slight LE weakness and impaired functional balance that impairs safety with transfers and likely gait. She has a hx of CVA and PLOF was indep. She will benefit from skilled PT intervnetion to address strength, balance and safety deficits. May benefit from extended therapy stay to improve her mobility to PLOF. Rehab Potential: Good PT Snf Goals [employer] Helper Goals PT Snf Goals Time Frame: Aug 22, 2017 Transfers (B,C,W/C) (FIM): 6 Gait (FIM): 6 Gait distance (FIM): 3=150 ft Gait Assistive Device: FWW PT Plan Problem List Problem List: Activity Tolerance, Functional Strength, Safety, Balance Treatment/Plan Treatment Plan: Continue Plan of Care Treatment Plan: Bed Mobility, Education, Functional Activity Dontae, Functional Strength, Gait, Safety, Therapeutic Exercise, Transfers Treatment Duration: Aug 22, 2017 Frequency: 11 times per week Estimated Hrs Per Day: .5 hour per day Patient and/or Family Agrees t: Yes Safety Risks/Education Patient Education: Transfer Techniques, Safety Issues Teaching Recipient: Patient, Significant Other Teaching Methods: Discussion Response to Teaching: Reinforcement Needed Discharge Recommendations Plan return to INTERMEDIATE versus possible ARU assessment. Time/GCodes Time In: 1057 Time Out: 1112 Total Billed Treatment Time: 15 Total Billed Treatment visit EVM 15 MEHRAN EDWARDS PT Aug 17, 2017 12:55
--- NOTE | 2017-08-17 14:26 | Progress Note-Cardiology ---
Cardiology SOAP Progress Note Objective: I&O/Vital Signs Vital Sign - Last 12Hours 08/17/17 08/17/17 08/17/17 08/17/17 03:00 04:00 04:00 04:43 Temp 97.8 Pulse 70 65 Resp 22 18 B/P (MAP) 143/77 134/90 Pulse Ox 99 93 99 O2 Delivery Room Air Room Air Room Air Room Air 08/17/17 08/17/17 08/17/17 08/17/17 05:00 05:24 06:00 07:00 Pulse 69 64 60 Resp 20 35 10 B/P (MAP) 144/82 144/82 (102) 133/78 131/82 129/84 (99) 115/81 (92) Pulse Ox 95 93 O2 Delivery Room Air Room Air Room Air 08/17/17 08/17/17 08/17/17 08/17/17 07:00 08:00 08:30 09:14 Pulse 60 65 71 Resp 18 13 B/P (MAP) 139/89 147/90 Pulse Ox 93 100 O2 Delivery Room Air Room Air Room Air Intake and Output 08/18/17 00:00 Intake Total 1000 ml Balance 1000 ml Weight (Pounds): 117 Weight (Ounces): 0.0 Weight (Calculated Kilograms): 53.225898 Constitutional: AAO x 3, well-developed, other (Thin appearing; somewhat to slow to respond to questions, but does respond appropriately) Respiratory: No accessory muscle use, other (good bilateral air entry) Cardiovascular: irregularly irregular, S1 and S2, systolic murmur (faint ESE at cardiac base) Gastrointestional: No tender, soft, No guarding, No rebound, audible bowel sounds Extremities: No clubbing, No cyanosis, No significant edema Neurologic/Psychiatric: oriented x 3, other (gen weakness, but does not seem to have focal weakness; slow to respond, but appropriate) Skin: No rash on exposed areas, No ulcerations on exposed areas Results/Procedures: Labs Laboratory Tests 08/17/17 04:55: White Blood Count 7.1, Red Blood Count 3.91L, Hemoglobin 12.8, Hematocrit 37, Mean Corpuscular Volume 95, Mean Corpuscular Hemoglobin 33, Mean Corpuscular Hemoglobin Concent 34, Red Cell Distribution Width 11.7, Platelet Count 209, Mean Platelet Volume 9.1, Neutrophils (%) (Auto) 70, Lymphocytes (%) (Auto) 22, Monocytes (%) (Auto) 7, Eosinophils (%) (Auto) 0, Basophils (%) (Auto) 0, Neutrophils # (Auto) 5.0, Lymphocytes # (Auto) 1.6, Monocytes # (Auto) 0.5, Eosinophils # (Auto) 0.0, Basophils # (Auto) 0.0, Sodium Level 134L, Potassium Level 3.7, Chloride Level 101, Carbon Dioxide Level 24, Anion Gap 9, Blood Urea Nitrogen 11, Creatinine 0.78, Estimat Glomerular Filtration Rate > 60, BUN/ Creatinine Ratio 14, Glucose Level 105, Calcium Level 9.0, Phosphorus Level 3.0 , Magnesium Level 2.2, Total Bilirubin 0.5, Aspartate Amino Transf (AST/SGOT) 14 , Alanine Aminotransferase (ALT/SGPT) 7, Alkaline Phosphatase 54, Total Protein 6.9, Albumin 3.6, Triglycerides Level 94, Cholesterol Level 195, LDL Cholesterol Direct 138H, VLDL Cholesterol 19, HDL Cholesterol 46, Amylase Level 15L, Lipase < 4L, Thyroid Stimulating Hormone (TSH) 1.78, Free Thyroxine 1.08 Microbiology 08/16/17 Urine Culture - Preliminary, Resulted Probable E.coli Lactobacillus Species A/P: Assessment: Profound dizziness of undetermined etiology, managed by Dr Ford Chronic atrial fibrillation H/o intracranial bleed while on OAC a few years ago. This required surgical treatment at . OAC has since been considered contraindicated. She has been able to take aspirin and Plavix w/o problem since then Hypertension UTI, being managed by Dr Ford Plan: * Complex management due to issues noted above * OAC contraindicated. Dr Clifford discussed this issue with Dr Arvizu of the Neuro [facility] at who has recommended continuation of ASA and Plavix * Dr Ford is managing UTI, dizziness, and possible stroke * Monitor labs * Echo * Would be a good candidate for Watchmann device for stroke prophylaxis once she gets over this acute syndrome. 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
[2017-08-17] MEDS: cefTRIAXone INJECTION 1,000 MG in NS (IVPB) 50 ML IV SCH (14:50)
--- NOTE | 2017-08-17 15:13 | Progress Note-Cardiology ---
Cardiology SOAP Progress Note Subjective: Less dizzy than yesterday. Notes gen weakness. No cp or palp or syncope Objective: I&O/Vital Signs Vital Sign - Last 12Hours 08/17/17 08/17/17 08/17/17 08/17/17 04:00 04:00 04:43 05:00 Temp 97.8 Pulse 65 69 Resp 18 20 B/P (MAP) 134/90 144/82 Pulse Ox 93 99 95 O2 Delivery Room Air Room Air Room Air Room Air 08/17/17 08/17/17 08/17/17 08/17/17 05:24 06:00 07:00 07:00 Pulse 64 60 60 Resp 35 10 B/P (MAP) 144/82 (102) 133/78 131/82 129/84 (99) 115/81 (92) Pulse Ox 93 O2 Delivery Room Air Room Air 08/17/17 08/17/17 08/17/17 08:00 08:30 09:14 Pulse 65 71 Resp 18 13 B/P (MAP) 139/89 147/90 Pulse Ox 93 100 O2 Delivery Room Air Room Air Room Air Intake and Output 08/18/17 00:00 Intake Total 1000 ml Balance 1000 ml Weight (Pounds): 117 Weight (Ounces): 0.0 Weight (Calculated Kilograms): 53.664907 Constitutional: AAO x 3, well-developed, other (Thin appearing; somewhat to slow to respond to questions, but does respond appropriately) Respiratory: No accessory muscle use, other (good bilateral air entry) Cardiovascular: irregularly irregular, S1 and S2, systolic murmur (faint ESE at cardiac base) Gastrointestional: No tender, soft, No guarding, No rebound, audible bowel sounds Extremities: No clubbing, No cyanosis, No significant edema Neurologic/Psychiatric: oriented x 3, other (gen weakness, but does not seem to have focal weakness; slow to respond, but appropriate) Skin: No rash on exposed areas, No ulcerations on exposed areas Results/Procedures: Labs Laboratory Tests 08/17/17 04:55: White Blood Count 7.1, Red Blood Count 3.91L, Hemoglobin 12.8, Hematocrit 37, Mean Corpuscular Volume 95, Mean Corpuscular Hemoglobin 33, Mean Corpuscular Hemoglobin Concent 34, Red Cell Distribution Width 11.7, Platelet Count 209, Mean Platelet Volume 9.1, Neutrophils (%) (Auto) 70, Lymphocytes (%) (Auto) 22, Monocytes (%) (Auto) 7, Eosinophils (%) (Auto) 0, Basophils (%) (Auto) 0, Neutrophils # (Auto) 5.0, Lymphocytes # (Auto) 1.6, Monocytes # (Auto) 0.5, Eosinophils # (Auto) 0.0, Basophils # (Auto) 0.0, Sodium Level 134L, Potassium Level 3.7, Chloride Level 101, Carbon Dioxide Level 24, Anion Gap 9, Blood Urea Nitrogen 11, Creatinine 0.78, Estimat Glomerular Filtration Rate > 60, BUN/ Creatinine Ratio 14, Glucose Level 105, Calcium Level 9.0, Phosphorus Level 3.0 , Magnesium Level 2.2, Total Bilirubin 0.5, Aspartate Amino Transf (AST/SGOT) 14 , Alanine Aminotransferase (ALT/SGPT) 7, Alkaline Phosphatase 54, Total Protein 6.9, Albumin 3.6, Triglycerides Level 94, Cholesterol Level 195, LDL Cholesterol Direct 138H, VLDL Cholesterol 19, HDL Cholesterol 46, Amylase Level 15L, Lipase < 4L, Thyroid Stimulating Hormone (TSH) 1.78, Free Thyroxine 1.08 Microbiology 08/16/17 Urine Culture - Preliminary, Resulted Probable E.coli Lactobacillus Species A/P: Assessment: Profound dizziness of undetermined etiology, managed by Dr Ford. 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 This required surgical treatment at . OAC has since been considered contraindicated. She has been able to take aspirin and Plavix w/o problem since then Hypertension UTI, being managed by Dr Ford Plan: * Complex management due to issues noted above * I had a detailed conversation with her today who is well aware of her history and was able to fill in the gaps in history, such as a more detailed history on her ic bleed (see under Assessment above) * I also had a detailed discussion with Dr Ford regarding management of a fib and management of anticoag/antiplatelet therapy. Dr Ford does not feel that this an acute stroke * Monitor labs * Would be a good candidate for Watchmann device for stroke prophylaxis once she gets over this acute syndrome. This will be pursued on an outpatient basis LAMONT HOPE MD [facility] CCDS Aug 17, 2017 15:13
[2017-08-17] MEDS ORDERED: PROMETHAZINE 12.5 MG (PHENERGAN) SUPP PR PRN (15:15)
[2017-08-17] MEDS ORDERED: ONDANSETRON 4 MG/2 ML (SDV) Z0FRAN IVP PRN (15:15)
--- NOTE | 2017-08-17 17:26 | Occupational Therapy Eval ---
OT Evaluation-General/PLF Medical Diagnosis Admission Date Aug 16, 2017 at 15:11 Medical Diagnosis: hypotensive episode Onset Date: Aug 16, 2017 Therapy Diagnosis Therapy Diagnosis: decr activ tolerance, decr strength Height/Weight Height (Feet): 5 Height (Inches): 7.00 Weight (Pounds): 117 Weight (Ounces): 0.0 Precautions Precautions/Isolations: Fall Prevention, Standard Precautions Safety Interventions: Notify Family, Reorient-Attempt, Reorient-PRN Referral Physician: Nette Referral Reason: Evaluation/Treatment Medical History Pertinent Medical History: Atrial Fib, CVA, Heart Failure (CHF), Hypothroidism Additional Medical History pt had brain bleed last year and spent several weeks [facility]. Depression Current History Admitted with dizziness and possible stroke, nausea and dry heaves, head ache and neck pain. Determined not to be CVA. Has UTI and dizziness Reviewed History: Yes Social History Home: Assisted Living (with her spouse at [place] [facility]) Current Living Status: Spouse Entry Into Home: Level Entry ADL-Prior Level of Function ADL PLOF Comments pt has been able to manage all of her basic self care needs including dressing and bathing. She does not drive OT Current Status Subjective Pt seen in room, up in bed, agreeable to OT. Pt reported pain 6/10 and said that it was "in my gut" Appearance Alert, cooperative, fatigued Mental Status/Objective Attachments: IV Current Glasses/Contacts: Yes Hearing Aids: No Dentures/Partials: No Hand Dominance: Left Upper Extremity ROM Grossly WFL bilat Upper Extremity Strength grossly 4/5 bilat ADL-Treatment ADL-Current Pt just transferred to floor from ICU. Reported transfers with CGA, FWW from PT evaluation. Able to get drink by herself Functional [place] Measure 0=Not Assessed/NA 4=Minimal Assistance 1=Total Assistance 5=Supervision or Setup 2=Maximal Assistance 6=Modified [place] 3=Moderate Assistance 7=Complete IndependenceIRFPAI Quality Coding Scale 6 Independent with activity with or without an assistive device 5 Patient requires set up or clean up by helper. Patient completes activity by themselves 4 Supervision or touching assist (CGA). Ches[place] provide cues , steadying assist 3 The helper provides less than half the effort to complete the activity 2 The helper provides more than half the effort to complete the activity 1 Dependent. The helper does all the effort to complete an activity 7 Patient refused to complete or attempt activity 9 The patient did not perform the activity before the current illness or injury 88 Not attempted due to Medical conditions or safety concerns Education OT Patient Education: Purpose of tx/functional activities, Rehab process Teaching Recipient: Patient, Family Teaching Methods: Discussion Response to Teaching: Verbalize Understanding OT Nursing Home Goals Drum Stenciler Goals Time Frame: Aug 24, 2017 Eating (FIM): 6 Grooming(FIM): 6 Bathing(FIM): 6 Upper Body Dressing(FIM): 6 Lower Body Dressing(FIM): 6 Toileting(FIM): 6 Toilet/Commode Transfer(FIM): 6 Shower Transfer(FIM): 5 Additional Goals: 1-Demonstrate ADL Tasks, 2-Verbalize Understanding, 3- ImproveStrength/Dontae 1=Demonstrate adherence to instructed precautions during ADL tasks. 2=Patient will verbalize/demonstrate understanding of assistive devices/ modifications for ADL. 3=Patient will improve strength/tolerance for activity to enable patient to perform ADL's. OT Education/Plan Problem List/Assessment Assessment: Decreased Activ Tolerance, Decreased UE Strength, Impaired Self- Care Skills Pt would benefit from skilled OT to increase her independence with basic self care to allow her to safely return home with Discharge Recommendations Plan/Recommendations: Continue POC Therapy D/C Recommendations: Occupational Therapy Home Care, [facility] ( [facility]CU/[facility]) (swing bed) Treatment Plan/Plan of Care Treatment,Training & Education: Yes Patient would benefit from OT for education, treatment and training to promote independence in ADL's, mobility, safety and/or upper extremity function for ADL' s. Plan of Care: ADL Retraining, Functional Mobility, UE Funct Exercise/Act Treatment Duration: Aug 24, 2017 Frequency: 5 times per week Estimated Hrs Per Day: .5 hour per day Agreement: Yes Rehab Potential: Good Time/GCodes Start Time: 14:55 Stop Time: 15:09 Total Time Billed (hr/min): 14 Billed Treatment Time visit, 14 minutes evaluation low intensity TIFFANY GUNN OT Aug 17, 2017 17:26
[2017-08-17] MEDS: NS IV 1000 ML 1,000 ML IV SCH (20:55)
[2017-08-17] MEDS: VITAMIN D3 1,000 UNITS (CHOLECALCIFEROL) TABLET PO SCH (21:49)
[2017-08-17] MEDS: MELATONIN 3 MG TABLET PO SCH (21:49)
[2017-08-17] MEDS: lisINopril 20 MG (ZESTRIL) TAB PO SCH (21:49)
[2017-08-17] MEDS: meTOprolol TARTRATE 50 MG (LOPRESSOR) TAB PO SCH (21:49)
[2017-08-17] MEDS: SIMvastatin 20 MG (ZOCOR) TAB PO SCH (21:49)
[2017-08-18] VITALS: BP 158/75
[2017-08-18 04:00] VITALS: BP 156/76
[2017-08-18] MEDS: CATHETER FLUSH 10 ML SYR IV SCH ×3 (04:50→21:04)
[2017-08-18 05:38] LABS: BASOPHILS % (AUTO) 1 % (0-10); EOSINOPHILS # (AUTO) 0.1 10^3/uL (0.0-0.3); EOSINOPHILS % (AUTO) 3 % (0-10); LYMPHOCYTES # (AUTO) 0.8 X 10^3 (1.0-4.0); LYMPHOCYTES % (AUTO) 24 % (12-44); MEAN CORPUSCULAR HEMOGLOBIN 32 PG (25-34); MEAN CORPUSCULAR HGB CONC 34 G/DL (32-36); MEAN CORPUSCULAR VOLUME 96 FL (80-99); MEAN PLATELET VOLUME 9.7 FL (7.4-10.4); MONOCYTES # (AUTO) 0.3 X 10^3 (0.0-1.0); MONOCYTES % (AUTO) 9 % (0-12); NEUTROPHILS # (AUTO) 2.2 X 10^3 (1.8-7.8); NEUTROPHILS % (AUTO) 64 % (42-75); PLATELET COUNT 164 10^3/uL (130-400); RED BLOOD COUNT 3.39 10^6/uL (4.35-5.85); RED CELL DISTRIBUTION WIDTH 11.8 % (10.0-14.5); WHITE BLOOD COUNT 3.4 10^3/uL (4.3-11.0)
[2017-08-18] MEDS: LEVOTHYROXINE 50 MCG (LEVOTHROID) TAB PO SCH (05:43)
[2017-08-18 06:02] LABS: ANION GAP 5 MMOL/L (5-14); BLOOD UREA NITROGEN 7 MG/DL (7-18); BUN/CREATININE RATIO 10; CALCIUM 8.1 MG/DL (8.5-10.1); CARBON DIOXIDE 25 MMOL/L (21-32); CHLORIDE 107 MMOL/L (98-107); CREATININE SERUM 0.67 MG/DL (0.60-1.30); GFR ESTIMATED > 60; GLUCOSE 97 MG/DL (70-105); MAGNESIUM 1.7 MG/DL (1.8-2.4); PHOSPHORUS 1.6 MG/DL (2.3-4.7); POTASSIUM 3.4 MMOL/L (3.6-5.0); SODIUM 137 MMOL/L (135-145)
[2017-08-18 08:00] VITALS: BP_SYST 178; BP_SYST 88; BP_DIAS 75; BP_DIAS 88
[2017-08-18] MEDS: lisINopril 20 MG (ZESTRIL) TAB PO SCH ×3 (08:26→21:03)
[2017-08-18] MEDS: ASPIRIN E.C. 81 MG (ECOTRIN) TAB PO SCH ×2 (08:26→10:17)
[2017-08-18] MEDS: meTOprolol TARTRATE 50 MG (LOPRESSOR) TAB PO SCH ×3 (08:26→21:03)
[2017-08-18] MEDS: NS IV 1000 ML 1,000 ML IV SCH (08:26)
[2017-08-18] MEDS: VITAMIN D3 1,000 UNITS (CHOLECALCIFEROL) TABLET PO SCH ×3 (08:27→21:03)
[2017-08-18] MEDS ORDERED: LORazepam INJ 2 MG/ML (ATIVAN) VIAL IVP ONE (09:00)
[2017-08-18] MEDS ORDERED: BIFIDOBACTERIUM INFANTIS 4 MG PO SCH (09:00)
[2017-08-18] MEDS ORDERED: FLUTICASONE NASAL SPRAY (FLONASE) 16 GM BTL NS PRN (09:00)
[2017-08-18] MEDS: CLOPIDOGREL 75 MG (PLAVIX) TABLET PO SCH (10:16)
--- NOTE | 2017-08-18 10:30 | Diagnostic Imaging Report ---
INDICATION: Dyspnea COMPARISON: 08/17/2017 FINDINGS: Upright portable view of the chest is obtained. Heart size appears minimally more prominent and there now appears to be mild central venous congestion and subtle interstitial changes increased from the prior study suggestive of interval development of mild failure/edema. No focal pneumonia is suspected. There is no pneumothorax. IMPRESSION: There are now findings suggestive of mild failure/edema, new from the prior exam, as described. Dictated by: Dictated on workstation # [id number]
[2017-08-18 12:00] VITALS: BP 167/78
--- NOTE | 2017-08-18 12:44 | Progress Note-Hospitalist ---
Progress Note HPI/CC on Admission CC: Possible stroke HPI: This is a 81 [address] Lucas at [facility] with hx of bleeding stroke in the past managed at [facility], so taken of blood thinner and placed on Plavix for stroke previously from AF for CVA prophylaxis. Yesterday came in with possible stroke 4+ hours after symptoms began, but after in depth work up in ER and multiple conversations with Dr. Clifford and [facility], pt was found to not have a new stroke, so pt placed on Eliquis for thrombosis prevention from AF and treated for UTI which improved disposition overall. health care aide: Pt is fine and doing much better Pt was diagnosed with UTI Pt was weak, probably dehydrated Pt on Eliquis Pt is a past smoker but it is unknown when she stopped Pt has dementia, granddaughter is visiting Patient Interview: Pt confirms Dr. Lucas as PCP Pt states she cycles through feeling good and not so good UTI treatment and fluids were discussed. Eliquis was discussed Pt states her stomach was hurting her yesterday Physical exam stable. Lungs sound perfect Pt denies smoking, but confirms being a former smoker. Granddaughter states she stopped around 1983. Pt's was also visiting and he stated that they have been 62 years in December. Pt states she lost her one daughter and the thought of losing her is not good. Move to 4th floor was discussed. Pt's granddaughter asked about further issues and where to take her if they arise, this was addressed. Granddaughter also inquired about the mast in the pt' s sinus; this will be evaluated as out-pt Pt asked about why she is having headaches and this was discussed. Scribed by Twyla Yeung under the direct supervision of Dr. Trotter. Progress Notes/Assess & Plan Date Seen 08/18/17 Time Seen by Provider: 11:30 Admission Dx/Process Assessment: Acute neurological deficit that appeared to be sub-acute CVA on admit but on comparison of imaging studies at [facility] it appears that that was scarring and track from bleeding stroke in the past Atrial fibrillation with thrombosis risk placed on Eliquis along with antiplatelet agent because she is so high risk for recurrent stroke Acute UTI Acute dehydration Baseline dementia vascular type without behavior disturbances Hypothyroidism Diagonsis/Assessment & Plan Conferred with Dr. Lee yesterday regarding the patient's desire to have gone to [facility] and sensitive via [facility] but a questionable stroke prompted paramedics to transfer to via [facility] and family was upset about this is suspicious and she was over the 4 hour window but patient appeared to have complex medical problems deeming her in need for higher level care in case things became more complicated. I did confer with Dr. Lucas today her primary care provider and she reported that her dementia is significant and I told her that she has acute delirium and she reported that that would not have been unusual for the patient under the circumstances. I did confer with Dr. Miller yesterday and I had missed spoke stating that she was placed on Eliquis but that was not the case and I stand corrected patient is maintained on Plavix and aspirin since this was deemed not a new stroke Urine culture still pending Chest x-ray did report volume overload so I have hep-locked fluid and given one dose of Lasix AFVSS except BP more elevated today, sitting in chair after Ativan given this morning no aggression noted, O x ~ 1 Irr Irr, CTAB no rales are noted No edema Laboratory Tests 08/18/17 04:53 Assessment: Acute neurological deficit that appeared to be sub-acute CVA on admit but on comparison of imaging studies at [facility] it appears that that was scarring and track from bleeding stroke in the past Atrial fibrillation with thrombosis risk placed back on Plavix along with ASA because she is so high risk for recurrent stroke and this appears not to have been a new CVA Acute delirium with aggression Acute UTI Gram negative eric on Rocephin Acute dehydration will HLIVF today Baseline dementia vascular type with behavior disturbances now due to delirium Hypothyroidism Hypokalemia Plan: PT/OT Restarted home meds Statin therapy Dementia noted precludes anything but worsened prognosis and now acute delirium so supportive care Maintain Plavix and ASA therapy BM regimen Ativan prn Lasix one dose HLIVF JOLIE TROTTER DO Aug 18, 2017 12:43
[2017-08-18] MEDS ORDERED: FUROSEMIDE 40 MG/4 ML INJ (LASIX) IVP ONE (12:45)
[2017-08-18] MEDS: LACTULOSE SYRUP 10GM/15ML (ENULOSE) 30ML UDC PO SCH ×2 (13:20→21:03)
[2017-08-18 16:00] VITALS: BP 138/84
--- NOTE | 2017-08-18 16:08 | Progress Note-Cardiology ---
Cardiology SOAP Progress Note Subjective: Feels stronger and less dizzy. Considering going home. Denies cp or palp or syncope Objective: I&O/Vital Signs Vital Sign - Last 12Hours 08/18/17 08/18/17 08:00 12:00 Temp 99.6 96.9 Pulse 77 65 Resp 18 18 B/P (MAP) 178/88 167/78 Pulse Ox 94 95 O2 Delivery Room Air Room Air Weight (Pounds): 124 Weight (Ounces): 3.0 Weight (Calculated Kilograms): 56.981236 Constitutional: AAO x 3, well-developed, other (Thin appearing; somewhat to slow to respond to questions, but does respond appropriately) Respiratory: No accessory muscle use, other (good bilateral air entry) Cardiovascular: irregularly irregular, S1 and S2, systolic murmur (faint ESE at cardiac base) Gastrointestional: No tender, soft, No guarding, No rebound, audible bowel sounds Extremities: No clubbing, No cyanosis, No significant edema Neurologic/Psychiatric: oriented x 3, other (gen weakness, but does not seem to have focal weakness; slow to respond, but appropriate) Skin: No rash on exposed areas, No ulcerations on exposed areas Results/Procedures: Labs Laboratory Tests 08/18/17 04:53: White Blood Count 3.4L, Red Blood Count 3.39L, Hemoglobin 11.0L, Hematocrit 33L , Mean Corpuscular Volume 96, Mean Corpuscular Hemoglobin 32, Mean Corpuscular Hemoglobin Concent 34, Red Cell Distribution Width 11.8, Platelet Count 164, Mean Platelet Volume 9.7, Neutrophils (%) (Auto) 64, Lymphocytes (%) (Auto) 24, Monocytes (%) (Auto) 9, Eosinophils (%) (Auto) 3, Basophils (%) (Auto) 1, Neutrophils # (Auto) 2.2, Lymphocytes # (Auto) 0.8L, Monocytes # (Auto) 0.3, Eosinophils # (Auto) 0.1, Basophils # (Auto) 0.0, Sodium Level 137, Potassium Level 3.4L, Chloride Level 107, Carbon Dioxide Level 25, Anion Gap 5, Blood Urea Nitrogen 7, Creatinine 0.67, Estimat Glomerular Filtration Rate > 60, BUN/ Creatinine Ratio 10, Glucose Level 97, Calcium Level 8.1L, Phosphorus Level 1.6L , Magnesium Level 1.7L Microbiology 08/16/17 Urine Culture - Final, Complete Escherichia Coli Lactobacillus Species Laboratory Tests 08/17/17 04:55 08/18/17 04:53 A/P: Assessment: Profound dizziness of undetermined etiology, managed by Dr Ford. 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 This required surgical treatment at . OAC has since been considered contraindicated. She has been able to take aspirin and Plavix w/o problem since then Hypertension UTI, being managed by Dr Ford Hypokalemia on lab work of 08/18/17 Plan: * Replenish K * Monitor labs LAMONT HOPE MD FACP FAC CCDS Aug 18, 2017 16:08
[2017-08-18] MEDS ORDERED: MAGNESIUM 1 GM/100 ML IVPB 100 ML IV NR (16:12)
[2017-08-18] MEDS: cefTRIAXone INJECTION 1,000 MG in NS (IVPB) 50 ML IV SCH (16:48)
[2017-08-18] MEDS: SIMvastatin 20 MG (ZOCOR) TAB PO SCH (21:03)
[2017-08-18] MEDS: MELATONIN 3 MG TABLET PO SCH (21:03)
[2017-08-18 23:53] VITALS: BP 154/70
[2017-08-19 03:56] VITALS: BP 145/77
[2017-08-19] MEDS: CATHETER FLUSH 10 ML SYR IV SCH ×3 (04:40→21:18)
[2017-08-19 05:36] LABS: BASOPHILS % (AUTO) 0 % (0-10); EOSINOPHILS # (AUTO) 0.2 10^3/uL (0.0-0.3); EOSINOPHILS % (AUTO) 4 % (0-10); LYMPHOCYTES # (AUTO) 1.5 X 10^3 (1.0-4.0); LYMPHOCYTES % (AUTO) 27 % (12-44); MEAN CORPUSCULAR HEMOGLOBIN 33 PG (25-34); MEAN CORPUSCULAR HGB CONC 34 G/DL (32-36); MEAN CORPUSCULAR VOLUME 96 FL (80-99); MEAN PLATELET VOLUME 9.5 FL (7.4-10.4); MONOCYTES # (AUTO) 0.6 X 10^3 (0.0-1.0); MONOCYTES % (AUTO) 11 % (0-12); NEUTROPHILS # (AUTO) 3.2 X 10^3 (1.8-7.8); NEUTROPHILS % (AUTO) 59 % (42-75); PLATELET COUNT 169 10^3/uL (130-400); RED BLOOD COUNT 3.52 10^6/uL (4.35-5.85); RED CELL DISTRIBUTION WIDTH 11.7 % (10.0-14.5); WHITE BLOOD COUNT 5.5 10^3/uL (4.3-11.0)
[2017-08-19 06:03] LABS: ALANINE AMINOTRANSFERASE 189 U/L (0-55); ALBUMIN 3.2 GM/DL (3.2-4.5); ANION GAP 8 MMOL/L (5-14); ASPARTATE AMINO TRANSFERASE 148 U/L (5-34); BILIRUBIN,TOTAL 0.8 MG/DL (0.1-1.0); BLOOD UREA NITROGEN 7 MG/DL (7-18); BUN/CREATININE RATIO 9; CALCIUM 8.6 MG/DL (8.5-10.1); CARBON DIOXIDE 24 MMOL/L (21-32); CHLORIDE 105 MMOL/L (98-107); CREATININE SERUM 0.76 MG/DL (0.60-1.30); GFR ESTIMATED > 60; GLUCOSE 101 MG/DL (70-105); PHOSPHORUS 2.3 MG/DL (2.3-4.7); POTASSIUM 3.2 MMOL/L (3.6-5.0); SODIUM 137 MMOL/L (135-145); TOTAL PROTEIN 6.1 GM/DL (6.4-8.2)
[2017-08-19] MEDS: KCL 20 MEQ TAB (K-DUR) PO SCH (06:24)
[2017-08-19] MEDS: LEVOTHYROXINE 50 MCG (LEVOTHROID) TAB PO SCH (06:24)
[2017-08-19 08:00] VITALS: BP 148/73
[2017-08-19] MEDS: ASPIRIN E.C. 81 MG (ECOTRIN) TAB PO SCH (09:01)
[2017-08-19] MEDS: meTOprolol TARTRATE 50 MG (LOPRESSOR) TAB PO SCH ×2 (09:02→21:17)
[2017-08-19] MEDS: LACTULOSE SYRUP 10GM/15ML (ENULOSE) 30ML UDC PO SCH ×2 (09:02→21:17)
[2017-08-19] MEDS: VITAMIN D3 1,000 UNITS (CHOLECALCIFEROL) TABLET PO SCH ×2 (09:02→21:17)
[2017-08-19] MEDS: lisINopril 20 MG (ZESTRIL) TAB PO SCH ×2 (09:02→21:17)
[2017-08-19] MEDS: CLOPIDOGREL 75 MG (PLAVIX) TABLET PO SCH (09:02)
--- NOTE | 2017-08-19 10:40 | Diagnostic Imaging Report ---
INDICATION: Atrial fib. Stroke. COMPARISON: 08/18/2017. FINDINGS: A single view of the chest demonstrates stable cardiac enlargement with persistent but decreased central vascular congestion. There is minimal atelectasis in the left base. There is no effusion or pneumothorax. IMPRESSION: 1. Cardiac enlargement with persistent but decreased central vascular congestion. 2. Stable atelectasis in the left base. Dictated by: Dictated on workstation # [id number]
[2017-08-19] MEDS ORDERED: MAGNESIUM 1 GM/100 ML IVPB 100 ML IV ONE (11:15)
[2017-08-19 12:00] VITALS: BP 164/76
[2017-08-19] MEDS: POTASSIUM CL 10MEQ/50ML IVPB 50 ML IV SCH ×3 (12:04→14:07)
--- NOTE | 2017-08-19 12:43 | Progress Note-Hospitalist ---
Progress Note HPI/CC on Admission CC: Possible stroke HPI: This is a 81 [address] Lucas at [facility] with hx of bleeding stroke in the past managed at [facility], so taken of blood thinner and placed on Plavix for stroke previously from AF for CVA prophylaxis. Yesterday came in with possible stroke 4+ hours after symptoms began, but after in depth work up in ER and multiple conversations with Dr. Clifford and [facility], pt was found to not have a new stroke, so pt placed on Eliquis for thrombosis prevention from AF and treated for UTI which improved disposition overall. management liaison: Pt is fine and doing much better Pt was diagnosed with UTI Pt was weak, probably dehydrated Pt on Eliquis Pt is a past smoker but it is unknown when she stopped Pt has dementia, granddaughter is visiting Patient Interview: Pt confirms Dr. Lucas as PCP Pt states she cycles through feeling good and not so good UTI treatment and fluids were discussed. Eliquis was discussed Pt states her stomach was hurting her yesterday Physical exam stable. Lungs sound perfect Pt denies smoking, but confirms being a former smoker. Granddaughter states she stopped around 1983. Pt's was also visiting and he stated that they have been 62 years in December. Pt states she lost her one daughter and the thought of losing her is not good. Move to 4th floor was discussed. Pt's granddaughter asked about further issues and where to take her if they arise, this was addressed. Granddaughter also inquired about the mast in the pt' s sinus; this will be evaluated as out-pt Pt asked about why she is having headaches and this was discussed. Scribed by Twyla Yeung under the direct supervision of Dr. Trotter. Progress Notes/Assess & Plan Date Seen 08/19/17 Time Seen by Provider: 11:30 Admission Dx/Process Assessment: Acute neurological deficit that appeared to be sub-acute CVA on admit but on comparison of imaging studies at [facility] it appears that that was scarring and track from bleeding stroke in the past Atrial fibrillation with thrombosis risk placed on Eliquis along with antiplatelet agent because she is so high risk for recurrent stroke Acute UTI Acute dehydration Baseline dementia vascular type without behavior disturbances Hypothyroidism Diagonsis/Assessment & Plan Pt doing better Talked to granddaughter about swing bed at [facility] and she is agreeable since she needs more PT and recuperation before going home and Dr Dionna Lucas is in agreement so will place those arrangements to be completed tomorrow Rocephin tolerated Checked meds and labs BM + large this morning Dementia will be adding to the slow recovery AFVSS, O x ~ 2 improved from yesterday but still demented Irr Irr, CTAB no rales are noted No edema Laboratory Tests 08/19/17 05:24 Assessment: Acute neurological deficit that appeared to be sub-acute CVA on admit but on comparison of imaging studies at [facility] it appears that that was scarring and track from bleeding stroke in the past Atrial fibrillation with thrombosis risk placed back on Plavix along with ASA because she is so high risk for recurrent stroke and this appears not to have been a new CVA Acute delirium with aggression now improved Acute UTI E coli with resistance on Rocephin since admit Acute dehydration s/pl HLIVF yesterday Baseline dementia vascular type with behavior disturbances now due to delirium and resolving now Hypothyroidism Hypokalemia recurrent and refractory Plan: PT/OT Dementia noted precludes anything but worsened prognosis and now acute delirium so supportive care Maintain Plavix and ASA therapy Ativan prn Swing Bed tomorrow to [facility] JOLIE TROTTER DO Aug 19, 2017 12:43
--- NOTE | 2017-08-19 15:48 | Progress Note-Cardiology ---
Cardiology SOAP Progress Note Subjective: Had nausea and vomiting yesterday. Report gen malaise and weakness. No cp or palp or syncope Reports burning at the site of iv when K supplements are infused. Wishes to take it orally. Objective: I&O/Vital Signs Vital Sign - Last 12Hours 08/19/17 08/19/17 08/19/17 08/19/17 03:56 07:00 08:00 12:00 Temp 98.4 96.4 96.9 Pulse 59 59 65 65 Resp 14 18 18 B/P (MAP) 145/77 148/73 164/76 Pulse Ox 94 94 95 O2 Delivery Room Air Room Air Room Air Weight (Pounds): 126 Weight (Ounces): 2.0 Weight (Calculated Kilograms): 57.855905 Constitutional: AAO x 3, well-developed, other (Thin appearing; somewhat to slow to respond to questions, but does respond appropriately) Respiratory: No accessory muscle use, other (good bilateral air entry) Cardiovascular: irregularly irregular, S1 and S2, systolic murmur (faint ESE at cardiac base) Gastrointestional: No tender, soft, No guarding, No rebound, audible bowel sounds Extremities: No clubbing, No cyanosis, No significant edema Neurologic/Psychiatric: oriented x 3, other (gen weakness, but does not seem to have focal weakness; slow to respond, but appropriate) Skin: No rash on exposed areas, No ulcerations on exposed areas Results/Procedures: Labs Laboratory Tests 08/19/17 05:24: White Blood Count 5.5, Red Blood Count 3.52L, Hemoglobin 11.5, Hematocrit 34L, Mean Corpuscular Volume 96, Mean Corpuscular Hemoglobin 33, Mean Corpuscular Hemoglobin Concent 34, Red Cell Distribution Width 11.7, Platelet Count 169, Mean Platelet Volume 9.5, Neutrophils (%) (Auto) 59, Lymphocytes (%) (Auto) 27, Monocytes (%) (Auto) 11, Eosinophils (%) (Auto) 4, Basophils (%) (Auto) 0, Neutrophils # (Auto) 3.2, Lymphocytes # (Auto) 1.5, Monocytes # (Auto) 0.6, Eosinophils # (Auto) 0.2, Basophils # (Auto) 0.0, Sodium Level 137, Potassium Level 3.2L, Chloride Level 105, Carbon Dioxide Level 24, Anion Gap 8, Blood Urea Nitrogen 7, Creatinine 0.76, Estimat Glomerular Filtration Rate > 60, BUN/ Creatinine Ratio 9, Glucose Level 101, Calcium Level 8.6, Phosphorus Level 2.3, Magnesium Level 2.0, Total Bilirubin 0.8, Aspartate Amino Transf (AST/SGOT) 148H , Alanine Aminotransferase (ALT/SGPT) 189H, Alkaline Phosphatase 147H, Total Protein 6.1L, Albumin 3.2 Microbiology 08/16/17 Urine Culture - Final, Complete Escherichia Coli Lactobacillus Species Laboratory Tests 08/18/17 04:53 08/19/17 05:24 A/P: Assessment: Profound dizziness of undetermined etiology, managed by Dr Ford. 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 This required surgical treatment at . OAC has since been considered contraindicated. She has been able to take aspirin and Plavix w/o problem since then Hypertension UTI, being managed by Dr Ford Hypokalemia on lab work of 08/19/17 Plan: * Replenish K, but change to oral * Monitor labs LAMONT HOPE MD FACP FAC CCDS Aug 19, 2017 15:48
[2017-08-19] MEDS ORDERED: KCL 20 MEQ TAB (K-DUR) PO NR (16:20)
[2017-08-19] MEDS: cefTRIAXone INJECTION 1,000 MG in NS (IVPB) 50 ML IV SCH (16:23)
[2017-08-19 16:39] VITALS: BP 152/65
[2017-08-19 19:23] VITALS: BP 179/88
[2017-08-19] MEDS ORDERED: LORazepam INJ 2 MG/ML (ATIVAN) VIAL IVP PRN (20:45)
[2017-08-19] MEDS: MELATONIN 3 MG TABLET PO SCH (21:17)
[2017-08-19] MEDS: SIMvastatin 20 MG (ZOCOR) TAB PO SCH (21:18)
[2017-08-20] VITALS: BP 167/81
[2017-08-20 04:00] VITALS: BP 159/70
[2017-08-20 06:21] LABS: BASOPHILS % (AUTO) 0 % (0-10); EOSINOPHILS # (AUTO) 0.2 10^3/uL (0.0-0.3); EOSINOPHILS % (AUTO) 3 % (0-10); LYMPHOCYTES # (AUTO) 1.3 X 10^3 (1.0-4.0); LYMPHOCYTES % (AUTO) 23 % (12-44); MEAN CORPUSCULAR HEMOGLOBIN 32 PG (25-34); MEAN CORPUSCULAR HGB CONC 34 G/DL (32-36); MEAN CORPUSCULAR VOLUME 96 FL (80-99); MONOCYTES # (AUTO) 0.5 X 10^3 (0.0-1.0); MONOCYTES % (AUTO) 8 % (0-12); NEUTROPHILS # (AUTO) 3.8 X 10^3 (1.8-7.8); NEUTROPHILS % (AUTO) 65 % (42-75); PLATELET COUNT 184 10^3/uL (130-400); RED BLOOD COUNT 3.43 10^6/uL (4.35-5.85); RED CELL DISTRIBUTION WIDTH 11.7 % (10.0-14.5); WHITE BLOOD COUNT 5.8 10^3/uL (4.3-11.0)
[2017-08-20] MEDS: LEVOTHYROXINE 50 MCG (LEVOTHROID) TAB PO SCH (06:36)
[2017-08-20] MEDS: KCL 20 MEQ TAB (K-DUR) PO SCH (06:37)
[2017-08-20] MEDS: CATHETER FLUSH 10 ML SYR IV SCH (06:37)
[2017-08-20 06:45] LABS: ALANINE AMINOTRANSFERASE 121 U/L (0-55); ALBUMIN 3.2 GM/DL (3.2-4.5); ANION GAP 6 MMOL/L (5-14); ASPARTATE AMINO TRANSFERASE 60 U/L (5-34); BILIRUBIN,TOTAL 0.4 MG/DL (0.1-1.0); BLOOD UREA NITROGEN 6 MG/DL (7-18); BUN/CREATININE RATIO 9; CALCIUM 8.6 MG/DL (8.5-10.1); CARBON DIOXIDE 24 MMOL/L (21-32); CHLORIDE 107 MMOL/L (98-107); CREATININE SERUM 0.69 MG/DL (0.60-1.30); GFR ESTIMATED > 60; GLUCOSE 96 MG/DL (70-105); MAGNESIUM 1.9 MG/DL (1.8-2.4); PHOSPHORUS 2.4 MG/DL (2.3-4.7); POTASSIUM 3.7 MMOL/L (3.6-5.0); SODIUM 137 MMOL/L (135-145); TOTAL PROTEIN 6.3 GM/DL (6.4-8.2)
[2017-08-20 07:57] LABS: TRIIODOTHYRONINE T3 FREE 2.2 pg/mL (2.4-4.5)
[2017-08-20 08:00] VITALS: BP 184/86
[2017-08-20] MEDS: meTOprolol TARTRATE 50 MG (LOPRESSOR) TAB PO SCH (08:13)
[2017-08-20] MEDS: ASPIRIN E.C. 81 MG (ECOTRIN) TAB PO SCH (08:13)
[2017-08-20] MEDS: VITAMIN D3 1,000 UNITS (CHOLECALCIFEROL) TABLET PO SCH (08:13)
[2017-08-20] MEDS: lisINopril 20 MG (ZESTRIL) TAB PO SCH (08:13)
[2017-08-20] MEDS: LACTULOSE SYRUP 10GM/15ML (ENULOSE) 30ML UDC PO SCH (08:13)
--- NOTE | 2017-08-20 08:53 | Progress Note-Cardiology ---
Cardiology SOAP Progress Note Subjective: No new c/o today. No c/o CP, palpitations, syncope, dyspnea or near syncope. Objective: I&O/Vital Signs Vital Sign - Last 12Hours 08/20/17 08/20/17 08/20/17 08/20/17 08:00 08:10 12:00 13:00 Temp 97.5 99.2 Pulse 58 57 Resp 20 20 B/P (MAP) 184/86 173/103 Pulse Ox 97 96 O2 Delivery Room Air Room Air Room Air Weight (Pounds): 125 Weight (Ounces): 9.0 Weight (Calculated Kilograms): 56.541917 Constitutional: AAO x 3, well-developed, other (Thin appearing; somewhat to slow to respond to questions, but does respond appropriately) Respiratory: No accessory muscle use, other (good bilateral air entry) Cardiovascular: irregularly irregular, S1 and S2, systolic murmur (faint ESE at cardiac base) Gastrointestional: No tender, soft, No guarding, No rebound, audible bowel sounds Extremities: No clubbing, No cyanosis, No significant edema Neurologic/Psychiatric: oriented x 3, other (gen weakness, but does not seem to have focal weakness; slow to respond, but appropriate) Skin: No rash on exposed areas, No ulcerations on exposed areas Results/Procedures: Labs Laboratory Tests 08/20/17 05:18: White Blood Count 5.8, Red Blood Count 3.43L, Hemoglobin 11.1L, Hematocrit 33L, Mean Corpuscular Volume 96, Mean Corpuscular Hemoglobin 32, Mean Corpuscular Hemoglobin Concent 34, Red Cell Distribution Width 11.7, Platelet Count 184, Mean Platelet Volume 10.0, Neutrophils (%) (Auto) 65, Lymphocytes (%) (Auto) 23 , Monocytes (%) (Auto) 8, Eosinophils (%) (Auto) 3, Basophils (%) (Auto) 0, Neutrophils # (Auto) 3.8, Lymphocytes # (Auto) 1.3, Monocytes # (Auto) 0.5, Eosinophils # (Auto) 0.2, Basophils # (Auto) 0.0, Sodium Level 137, Potassium Level 3.7, Chloride Level 107, Carbon Dioxide Level 24, Anion Gap 6, Blood Urea Nitrogen 6L, Creatinine 0.69, Estimat Glomerular Filtration Rate > 60, BUN/ Creatinine Ratio 9, Glucose Level 96, Calcium Level 8.6, Phosphorus Level 2.4, Magnesium Level 1.9, Total Bilirubin 0.4, Aspartate Amino Transf (AST/SGOT) 60H , Alanine Aminotransferase (ALT/SGPT) 121H, Alkaline Phosphatase 119, Total Protein 6.3L, Albumin 3.2 Microbiology 08/16/17 Urine Culture - Final, Complete Escherichia Coli Lactobacillus Species A/P: Assessment: Profound dizziness of undetermined etiology, managed by Dr Ford. 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 This required surgical treatment at . OAC has since been considered contraindicated. She has been able to take aspirin and Plavix w/o problem since then Hypertension UTI, being managed by Dr Ford Hypokalemia on lab work of 08/19/17 - resolved Plan: * Blood pressure not well controlled - add Norvasc * Elevated liver enzymes of undetermined etiology - will hold statin for now * Monitor labs Physician Assessment Physician Assessment Feels weak, but thinks this is her usual baseline. Wishes to go home Cor: irreg Lungs: good bilat air entry Ext: no c/c/e A&R * As documented in our note above that I updated (italics) and as noted below * Continue current cardiac regimen * F/u with Card as outpatient * I spoke with her and answered CV-related questions ELIZABETH BHATT Aug 20, 2017 08:53 LAMONT HOPE MD [facility] Aug 20, 2017 17:12
[2017-08-20] MEDS ORDERED: amLODIPine 5 MG (NORVASC) TAB PO SCH (09:00)
[2017-08-20] MEDS ORDERED: amLODIPine 5 MG (NORVASC) TAB PO NR (09:00)
[2017-08-20] MEDS ORDERED: CFTR1PB IV (09:03)
[2017-08-20] MEDS ORDERED: AMLO5TAB2 PO (09:03)
[2017-08-20] MEDS ORDERED: SIMV20TA3 PO (09:03)
[2017-08-20] MEDS ORDERED: POTA20TA8 PO (09:05)
--- NOTE | 2017-08-20 10:07 | Diagnostic Imaging Report ---
INDICATION: Dyspnea. Frontal chest obtained at 5:01 a.m. and compared with 08/19/2017. Heart is borderline in size. There is mild central vascular prominence with a few Siddhartha B-lines compatible with mild interstitial edema. There is no consolidation or pneumothorax or pleural fluid. IMPRESSION: Central vascular congestion with a few scattered Siddhartha B-lines compatible with mild interstitial edema. The findings appear slightly worsened compared to yesterday. There is no pneumothorax or pleural fluid. Dictated by: Dictated on workstation # [id number]
--- NOTE | 2017-08-20 11:02 | Physical Therapy Daily Note ---
PT Daily Note-Current Subjective Patient is side lying in the bed upon PT entering. She appears a little drowsy and had just woken up from sleeping. Pain Numeric Pain Scale: 0-No Pain Location: No Pain Reported Mental Status Patient Orientation: Confused Patient seems confused with events that happened earlier in the day and the day previous. She states that she does not really know what is going on multiple times. Transfers Functional [place] Measure 0=Not Assessed/NA 4=Minimal Assistance 1=Total Assistance 5=Supervision or Setup 2=Maximal Assistance 6=Modified [place] 3=Moderate Assistance 7=Complete IndependenceIRFPAI Quality Coding Scale 6 Independent with activity with or without an assistive device 5 Patient requires set up or clean up by helper. Patient completes activity by themselves 4 Supervision or touching assist (CGA). [place] provide cues , steadying assist 3 The helper provides less than half the effort to complete the activity 2 The helper provides more than half the effort to complete the activity 1 Dependent. The helper does all the effort to complete an activity 7 Patient refused to complete or attempt activity 9 The patient did not perform the activity before the current illness or injury 88 Not attempted due to Medical conditions or safety concerns Gait Training Gait (FIM): 2 Distance (FIM): 6=709-48 ft Distance: 100' Gait Level of Assist: 5 Gait Persons Needed: 1 Gait Assistive Device: FWW Patient seems drowsy when walking. Her gait veers laterally to either direction , sometimes running into the walker. Assessment Current Status: Fair Progress Patient has tolerance for exercise, but her orientation limits exercise due to her inability to understand directions at times. PT will progress as patient tolerates. PT Manager Copy Goals Senior Living Goals PT Senior Living Goals Time Frame: Aug 22, 2017 Transfers (B,C,W/C) (FIM): 6 Gait (FIM): 6 Gait distance (FIM): 3=150 ft Gait Assistive Device: FWW PT Plan Problem List Problem List: Functional Strength, Safety, Balance, Gait Treatment/Plan Treatment Plan: Continue Plan of Care Treatment Plan: Bed Mobility, Education, Functional Activity Dontae, Functional Strength, Gait, Safety, Therapeutic Exercise, Transfers Treatment Duration: Aug 22, 2017 Frequency: 11 times per week Estimated Hrs Per Day: .5 hour per day Patient and/or Family Agrees t: Yes Time/GCodes Time In: 952 Time Out: 1002 Total Billed Treatment Time: 10 Total Billed Treatment 1 visit GT 10 min BELEN,CORKY PT Aug 20, 2017 11:02
--- NOTE | 2017-08-20 11:51 | Discharge Summary-Hospitalist ---
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 CT Head showed a concerning area for sub acute stroke but per notes upon discussion with [facility] this was deemed not to be a new infarct- just scarring of an old stroke. She was found to have a UTI necessitating IV abx. She continued to be confused and somewhat debilitated. She was treated with Rocephin and discharged to swing bed status at [facility] for completion of IV abx and PT/OT for debility. Labs (last 24 hrs) Laboratory Tests 08/20/17 05:18: White Blood Count 5.8, Red Blood Count 3.43L, Hemoglobin 11.1L, Hematocrit 33L, Mean Corpuscular Volume 96, Mean Corpuscular Hemoglobin 32, Mean Corpuscular Hemoglobin Concent 34, Red Cell Distribution Width 11.7, Platelet Count 184, Mean Platelet Volume 10.0, Neutrophils (%) (Auto) 65, Lymphocytes (%) (Auto) 23 , Monocytes (%) (Auto) 8, Eosinophils (%) (Auto) 3, Basophils (%) (Auto) 0, Neutrophils # (Auto) 3.8, Lymphocytes # (Auto) 1.3, Monocytes # (Auto) 0.5, Eosinophils # (Auto) 0.2, Basophils # (Auto) 0.0, Sodium Level 137, Potassium Level 3.7, Chloride Level 107, Carbon Dioxide Level 24, Anion Gap 6, Blood Urea Nitrogen 6L, Creatinine 0.69, Estimat Glomerular Filtration Rate > 60, BUN/ Creatinine Ratio 9, Glucose Level 96, Calcium Level 8.6, Phosphorus Level 2.4, Magnesium Level 1.9, Total Bilirubin 0.4, Aspartate Amino Transf (AST/SGOT) 60H , Alanine Aminotransferase (ALT/SGPT) 121H, Alkaline Phosphatase 119, Total Protein 6.3L, Albumin 3.2 Microbiology 08/16/17 Urine Culture - Final, Complete Escherichia Coli Lactobacillus Species Pending Labs Laboratory Tests 08/20/17 05:18: White Blood Count 5.8, Red Blood Count 3.43, Hemoglobin 11.1, Hematocrit 33, Mean Corpuscular Volume 96, Mean Corpuscular Hemoglobin 32, Mean Corpuscular Hemoglobin Concent 34, Red Cell Distribution Width 11.7, Platelet Count 184, Mean Platelet Volume 10.0, Neutrophils (%) (Auto) 65, Lymphocytes (%) (Auto) 23 , Monocytes (%) (Auto) 8, Eosinophils (%) (Auto) 3, Basophils (%) (Auto) 0, Neutrophils # (Auto) 3.8, Lymphocytes # (Auto) 1.3, Monocytes # (Auto) 0.5, Eosinophils # (Auto) 0.2, Basophils # (Auto) 0.0, Sodium Level 137, Potassium Level 3.7, Chloride Level 107, Carbon Dioxide Level 24, Anion Gap 6, Blood Urea Nitrogen 6, Creatinine 0.69, Estimat Glomerular Filtration Rate > 60, BUN/ Creatinine Ratio 9, Glucose Level 96, Calcium Level 8.6, Phosphorus Level 2.4, Magnesium Level 1.9, Total Bilirubin 0.4, Aspartate Amino Transf (AST/SGOT) 60, Alanine Aminotransferase (ALT/SGPT) 121, Alkaline Phosphatase 119, Total Protein 6.3, Albumin 3.2 Discussion & Recommendations She was noticed to have elevated liver enzymes on 08/19 repeat on 08/20 showed marked improved though still abnormal. I discussed this with her PCP Dr Lucas. Giving history of recurrent strokes and dementia I elected to keep her on statin with plan to trend liver enzymes to make sure they continue to improved Discharge Home Medications: Active Scripts Active Klor-Con M20 (Potassium Chloride) 20 Meq Tab.er.prt 40 Meq PO DAILY@0700 Ceftriaxone (Ceftriaxone Sod) 1 Gm/Vial Soln 1 Gm IV DAILY 2 Days Reported Align (Bifidobacterium Infantis) 4 Mg Capsule 4 Mg PO DAILY Aspirin EC (Aspirin) 81 Mg Tablet.dr 81 Mg PO DAILY Calcium Carbonate 500 Mg Tablet 500-1,000 Mg PO Q6H PRN Flonase Allergy Relief (Fluticasone Propionate) 9.9 Ml Pansey.susp 2 Sprays NS DAILY PRN Melatonin 1 Mg Tablet 2 Mg PO HS Miralax (Polyethylene Glycol 3350) 17 Gm Powd.pack 17 Gm PO DAILY PRN Vitamin D3 (Cholecalciferol (Vitamin D3)) 2,000 Unit Capsule 2,000 Unit PO BID Levothyroxine Sodium 50 Mcg Tablet 50 Mcg PO DAILY Lisinopril 20 Mg Tablet 20 Mg PO BID Cyanocobalamin Injection (Cyanocobalamin) 1,000 Mcg/Ml Inj 1,000 Mcg INJ MONTHLY END OF EACH MONTH Metoprolol Tartrate 100 Mg Tablet 100 Mg PO BID Escitalopram Oxalate 5 Mg Tablet 5 Mg PO HS Clopidogrel (Clopidogrel Bisulfate) 75 Mg Tablet 75 Mg PO 1200 Instructions to patient/family Please see electronic discharge instructions given to patient. Clinical Quality Measures DVT/VTE Risk/Contraindication: Risk Factor Score Per Nursin RFS Level Per Nursing on Admit: 4+=Very High Stroke: Quality Measures-Stroke Pt: Assessed for Rehab (PT,OT,ARU,etc), D/C'd on statin (for LDL>=70) No Anticoagulation Therapy: Bleeding Risk No Antithrombotic therapy: Bleeding Risk SHELLY REYES MD Aug 20, 2017 11:51 am
[2017-08-20 12:00] VITALS: BP 173/103
[2017-08-20] MEDS: CLOPIDOGREL 75 MG (PLAVIX) TABLET PO SCH (12:37)
[2017-08-28] MEDS ORDERED: CYANOCOBALAMIN INJ 1000 MCG/ML IM SCH (09:00)
== END 2017-08-20 13:00 | disposition swing bed (61) | DRG 690 ==
LOC: ER 11:03 → ENRESERV 13:51 → ICU 15:11 → 4TH 08-17 11:05
PROVIDERS: ADMIT Internal Medicine; ATTEND Internal Medicine
DX: N39.0 Urinary tract infection, site not specified (principal); B96.20 Unspecified Escherichia coli [E. coli] as the cause of diseases classified elsewhere; J32.0 Chronic maxillary sinusitis; E86.0 Dehydration; I48.2 Chronic atrial fibrillation; I95.1 Orthostatic hypotension; I10 Essential (primary) hypertension; F01.51 Vascular dementia, unspecified severity, with behavioral disturbance; F32.9 Major depressive disorder, single episode, unspecified; E03.9 Hypothyroidism, unspecified; E87.70 Fluid overload, unspecified; E87.6 Hypokalemia; Z86.73 Personal history of transient ischemic attack (TIA), and cerebral infarction without residual deficits; Z87.891 Personal history of nicotine dependence; Z79.02 Long term (current) use of antithrombotics/antiplatelets; Z79.82 Long term (current) use of aspirin; R74.8 Abnormal levels of other serum enzymes
CPT/HCPCS: 36415; 70450; 70551; 71010; 72125; 80048; 80053; 80061; 81000; 82150; 82533; 83690; 83735; 84100; 84439; 84443; 84481; 84484; 85025; 85379; 85610; 85730; 86141; 87088; 87186; 93005; 93041; 93306; 93880; 94664; 96365